=== PATIENT | female | born 1950 | race Caucasian/White ===

== ENCOUNTER 2020-09-22 09:51 | Outpatient (REF) | payer MEDICARE, OTHER, SELFPAY ==
--- NOTE | 2020-09-22 09:55 | MM_ITS ---
EXAMINATION: MM SCREENING DIGITAL BREAST TOMOSYNTHESIS, BILATERAL CLINICAL INFORMATION: Screening. Asymptomatic. The lifetime risk of breast cancer based on the Tyrer-Cuzick Model is 11%. COMPARISON: Outside mammography: 01/26/2019, 01/22/2018, 01/20/2017 ([place]). TECHNIQUE: Digital breast tomosynthesis is performed in both the craniocaudal and mediolateral oblique views along with computer-aided detection (CAD). Synthesized 2D images are generated from the tomosynthesis. FINDINGS: There are scattered areas of fibroglandular density (ACR BI-RADS breast composition Category b). There are no significant masses, abnormal calcifications, or other abnormalities. Parenchymal pattern is similar to prior outside exam. There is a small dermal lesion again seen posterior medial left breast on CC view, previously marked with mole marker. Low left axillary tail node is also stable. There are no significant changes. MM/MM tomosynthesis screening BI IMPRESSION: No mammographic evidence of malignancy. ASSESSMENT: BI-RADS 2: Benign RECOMMENDATION: Routine annual mammography screening. This patient's information was entered into a reminder system with a target due date for their next mammogram.
== END 2020-09-22 09:52 | disposition home or self-care (01) ==
LOC: HO.MAMMO 09:51
PROVIDERS: PCP Internal Medicine Geriatric Medicine; Visit Provider Internal Medicine Geriatric Medicine
DX: Z12.31 Encounter for screening mammogram for malignant neoplasm of breast (principal)
CPT/HCPCS: 77063; 77067

== ENCOUNTER 2021-11-05 15:34 | Outpatient (REF) | payer MEDICARE, OTHER, SELFPAY ==
--- NOTE | ~2021-11-05 | MM_ITS ---
EXAMINATION: MM SCREENING DIGITAL BREAST TOMOSYNTHESIS, BILATERAL CLINICAL INFORMATION: Screening. Asymptomatic. Benign right excisional biopsy, 1971. The lifetime risk of breast cancer based on the Tyrer-Cuzick Model is 11%. COMPARISON: Mammography: 09/22/2020; outside mammography 01/26/2019, 01/22/2018 ([place]). TECHNIQUE: Digital breast tomosynthesis is performed in both the craniocaudal and mediolateral oblique views along with computer-aided detection (CAD). Synthesized 2D images are generated from the tomosynthesis. FINDINGS: There are scattered areas of fibroglandular density (ACR BI-RADS breast composition Category b). There are no significant masses, abnormal calcifications, or other abnormalities. Parenchymal pattern is similar to prior exams. No developing density or architectural abnormality. The axilla are unremarkable. No significant changes. MM/MM tomosynthesis screening BI IMPRESSION: No mammographic evidence of malignancy. ASSESSMENT: BI-RADS 1: Negative RECOMMENDATION: Routine annual mammography screening. This patient's information was entered into a reminder system with a target due date for their next mammogram.
== END 2021-11-05 15:35 | disposition home or self-care (01) ==
LOC: HO.MAMMO 15:34
PROVIDERS: PCP Internal Medicine Geriatric Medicine; Visit Provider Internal Medicine Geriatric Medicine
DX: Z12.31 Encounter for screening mammogram for malignant neoplasm of breast (principal)
CPT/HCPCS: 77063; 77067

== ENCOUNTER 2022-03-08 10:47 | Outpatient (REF) | payer MEDICARE, OTHER, SELFPAY ==
--- NOTE | ~2022-03-08 | MM_ITS ---
EXAMINATION: BONE DENSITOMETRY CLINICAL INDICATION: Encounter for screening for osteoporosis. COMPARISON: Baseline BD dated 07/23/2019. TECHNIQUE: Using a [employer] DXA System (software version: 13.1) manufactured by [employer], dual-energy x-ray absorptiometry was performed of the lumbar spine and left hip. The images are of good technical quality. Summary results are attached. FINDINGS: AP SPINE L1-L4: Current: BMD 1.080 g/cm2, Z-score 0.4, T-score -0.8, normal, 6.8% increase from baseline (<5% change is not significant). Baseline: BMD 1.011 g/cm2. LEFT FEMUR, NECK: Current: BMD 0.721 g/cm2, Z-score -0.8, T-score -2.3, osteopenia. Baseline: BMD 0.680 g/cm2. LEFT FEMUR, TOTAL: Current: BMD 0.820 g/cm2, Z-score -0.3, T-score -1.5, osteopenia, 6.6% increase from baseline (<5% change is not significant). Baseline: BMD 0.769 g/cm2. IDENTIFIED RISK FACTORS: Osteoporosis, history of fracture (adult), menopause. HISTORY OF FRACTURE: Wrist. Other. MEDICATIONS: Calcium supplements or multivitamin, vitamin D, bisphosphonates. MM/XR DEXA axial skeleton IMPRESSION: 1. DIAGNOSIS: Osteopenia based on the lowest T-score value of -2.3 in the femoral neck applying World Health Organization criteria. 2. 10-YEAR FRACTURE RISK PREDICTION, FRAX: Major osteoporotic fracture (clinical spine, forearm, hip or shoulder) 20.5%. Hip fracture 4.6%. 3. Treatment Recommendations: NOF guidelines recommend consideration for treatment in postmenopausal women and men age 50 and older presenting with the following: -A hip or vertebral (clinical or morphometric) fracture. -T-score less than or equal to -2.5 at the femoral neck or spine after appropriate evaluation to exclude secondary causes. -Low bone mass at the hip or spine and a 10-year fracture probability by FRAX of greater than or equal to 3% for hip fracture or greater than or equal to 20% for major osteoporotic fracture based on the [place] adapted WHO algorithm. 4. Other Recommendations: All treatment decisions require clinical judgment and consideration of individual patient factors, including patient preferences, comorbidities, previous drug use, risk factors not captured in the FRAX model (e.g. frailty, falls, vitamin D deficiency, increased bone turnover, interval significant decline in bone density) and possible under or overestimation of fracture risk by FRAX. Additional medical evaluation for secondary cause of low bone mineral density may be appropriate. FUTURE SCAN RECOMMENDATION: People with diagnosed cases of osteoporosis or at high risk for fracture should have regular bone mineral density tests. For patients eligible for Medicare, routine testing is allowed once every 2 years. The testing frequency can be increased to one year for patients who have rapidly progressing disease, those who are receiving or discontinuing medical therapy to restore bone mass, or have additional risk factors.
== END 2022-03-08 10:48 | disposition home or self-care (01) ==
LOC: HO.MAMMO 10:47
PROVIDERS: Visit Provider Advanced Practice Midwife
DX: Z13.820 Encounter for screening for osteoporosis (principal); M81.0 Age-related osteoporosis without current pathological fracture; Z78.0 Asymptomatic menopausal state
CPT/HCPCS: 77080

== ENCOUNTER 2022-11-11 10:37 | Outpatient (REF) | payer MEDICARE, OTHER, SELFPAY ==
--- NOTE | ~2022-11-11 | MM_ITS ---
EXAMINATION: MM SCREENING DIGITAL BREAST TOMOSYNTHESIS, BILATERAL CLINICAL INFORMATION: Screening. Asymptomatic. The lifetime risk of breast cancer based on the Tyrer-Cuzick Model is 8%. COMPARISON: Mammography: 11/05/2021, 09/22/2020, 01/26/2019 TECHNIQUE: Digital breast tomosynthesis is performed in both the craniocaudal and mediolateral oblique views along with computer-aided detection (CAD). Synthesized 2D images are generated from the tomosynthesis. FINDINGS: There are scattered areas of fibroglandular density (ACR BI-RADS breast composition Category b). There are no significant masses, abnormal calcifications, or other abnormalities. Parenchymal pattern is similar to prior studies. There is no developing density or architectural abnormality. The axilla and skin contours are unremarkable. No significant changes. MM/MM tomosynthesis screening BI IMPRESSION: No mammographic evidence of malignancy. ASSESSMENT: BI-RADS 1: Negative RECOMMENDATION: Routine annual mammography screening. This patient's information was entered into a reminder system with a target due date for their next mammogram.
== END 2022-11-11 10:38 | disposition home or self-care (01) ==
LOC: HO.MAMMO 10:37
PROVIDERS: PCP Internal Medicine Geriatric Medicine; Visit Provider Internal Medicine Geriatric Medicine
DX: Z12.31 Encounter for screening mammogram for malignant neoplasm of breast (principal)
CPT/HCPCS: 77063; 77067

== ENCOUNTER 2023-07-26 08:26 | Outpatient (REF) | payer MEDICARE, OTHER, SELFPAY ==
[2023-07-26 09:33] LABS: Alanine Aminotransferase 30 U/L (0-31); Albumin Level 4.3 g/dL (3.5-5.0); Alkaline Phosphatase 70 U/L (39-117); Anion Gap 17 (12-20); Aspartate Amino Transferase 23 U/L (5-31); Bilirubin Total 0.8 mg/dL (0.0-1.0); Blood Urea Nitrogen 12 mg/dL (9-16); Calcium 10.6 mg/dL (8.4-10.2); Carbon Dioxide 24 mmol/L (22-29); Chloride 103 mmol/L (96-108); Estimated Glomerular Filt Rate > 60; Glucose Random 99 mg/dL (60-115); Sodium 140 mmol/L (135-145); Total Protein 7.2 g/dL (6.5-8.0)
== END 2023-07-26 08:27 | disposition home or self-care (01) ==
LOC: HO.LAB 08:26
PROVIDERS: PCP Internal Medicine Geriatric Medicine; Visit Provider Internal Medicine Geriatric Medicine
DX: E03.9 Hypothyroidism, unspecified (principal); E78.5 Hyperlipidemia, unspecified
CPT/HCPCS: 36415; 80053; 84443

== ENCOUNTER 2023-07-31 12:23 | Outpatient (REF) | payer MEDICARE, OTHER, SELFPAY | END 2023-07-31 12:24 | disposition home or self-care (01) | LOC: HO.HHCL 12:23 | PROVIDERS: Visit Provider Internal Medicine Geriatric Medicine | DX: E03.9 Hypothyroidism, unspecified (principal); E83.52 Hypercalcemia | CPT/HCPCS: 36415; 83970 ==

== ENCOUNTER 2023-11-17 10:14 | Outpatient (REF) | payer MEDICARE, OTHER, SELFPAY | END 2023-11-17 10:15 | disposition home or self-care (01) | LOC: HO.MAMMO 10:14 | PROVIDERS: PCP Internal Medicine Geriatric Medicine; Visit Provider Internal Medicine Geriatric Medicine | DX: Z12.31 Encounter for screening mammogram for malignant neoplasm of breast (principal) | CPT/HCPCS: 77063; 77067 ==

== ENCOUNTER → 2023-11-17 10:30 | Outpatient (BNV) | payer MEDICARE, OTHER, SELFPAY | PROVIDERS: PCP Internal Medicine Geriatric Medicine; Visit Provider Radiology Diagnostic Radiology | DX: Z12.31 Encounter for screening mammogram for malignant neoplasm of breast (principal) | CPT/HCPCS: 77063; 77067 ==

== ENCOUNTER 2024-04-01 10:46 | Outpatient (REF) | payer MEDICARE, OTHER, SELFPAY ==
--- NOTE | ~2024-04-01 | MM_ITS ---
EXAMINATION: BONE DENSITOMETRY CLINICAL INDICATION: Osteoporosis. Primary hyperparathyroidism. COMPARISON: Previous BD dated 03/08/2022 and baseline BD dated 07/23/2019. TECHNIQUE: Using a [employer] DXA System (software version: 13.1) manufactured by [employer], dual-energy x-ray absorptiometry was performed of the lumbar spine, left hip, and right forearm radius 33%. The images are of good technical quality. Summary results are attached. FINDINGS: LEFT FEMUR, NECK: Current: BMD 0.724 g/cm2, Z-score -0.7, T-score -2.3, osteopenia. Prior: BMD 0.721 g/cm2. Baseline: BMD 0.680 g/cm2. LEFT FEMUR, TOTAL: Current: BMD 0.799 g/cm2, Z-score -0.4, T-score -1.7, osteopenia, 2.6% decrease from previous, 3.9% increase from baseline (<5% change is not significant). Prior: BMD 0.820 g/cm2. Baseline: BMD 0.769 g/cm2. AP SPINE L1-L4: Current: BMD 1.109 g/cm2, Z-score 0.7, T-score -0.6, normal, 2.7% increase from previous, 9.7% increase from baseline (<5% change is not significant). Prior: BMD 1.080 g/cm2. Baseline: BMD 1.011 g/cm2. RIGHT FOREARM RADIUS 33%: BMD 0.730 g/cm2, Z-score 0.4, T-score -1.7, osteopenia. IDENTIFIED RISK FACTORS: Menopause, history of fracture (adult), hyperparathyroid, osteoporosis. HISTORY OF FRACTURE: Wrist, other. MEDICATIONS: Calcium, vitamin D, bisphosphonate. MM/XR DEXA appendicular skeleton IMPRESSION: 1. DIAGNOSIS: Osteopenia based on the lowest T-score value of -2.3 in the femoral neck applying World Health Organization criteria. 2. 10-YEAR FRACTURE RISK PREDICTION, FRAX: Not performed in this patient on estrogen or bone building treatments. 3. Treatment Recommendations: NOF guidelines recommend consideration for treatment in postmenopausal women and men age 50 and older presenting with the following: -A hip or vertebral (clinical or morphometric) fracture. -T-score less than or equal to -2.5 at the femoral neck or spine after appropriate evaluation to exclude secondary causes. -Low bone mass at the hip or spine and a 10-year fracture probability by FRAX of greater than or equal to 3% for hip fracture or greater than or equal to 20% for major osteoporotic fracture based on the [place] adapted WHO algorithm. 4. Other Recommendations: All treatment decisions require clinical judgment and consideration of individual patient factors, including patient preferences, comorbidities, previous drug use, risk factors not captured in the FRAX model (e.g. frailty, falls, vitamin D deficiency, increased bone turnover, interval significant decline in bone density) and possible under or overestimation of fracture risk by FRAX. Additional medical evaluation for secondary cause of low bone mineral density may be appropriate. FUTURE SCAN RECOMMENDATION: People with diagnosed cases of osteoporosis or at high risk for fracture should have regular bone mineral density tests. For patients eligible for Medicare, routine testing is allowed once every 2 years. The testing frequency can be increased to one year for patients who have rapidly progressing disease, those who are receiving or discontinuing medical therapy to restore bone mass, or have additional risk factors.
== END 2024-04-01 10:47 | disposition home or self-care (01) ==
LOC: HO.MAMMO 10:46
PROVIDERS: PCP Internal Medicine Geriatric Medicine; Visit Provider Internal Medicine Endocrinology, Diabetes & Metabolism
DX: M81.0 Age-related osteoporosis without current pathological fracture (principal); E21.0 Primary hyperparathyroidism
CPT/HCPCS: 77081

== ENCOUNTER 2024-11-18 10:12 | Outpatient (REF) | payer MEDICARE, OTHER, SELFPAY ==
--- OUTSIDE RECORDS SUMMARY | 2024-11-18 11:52 | XMS_ITS | Clinical Summary ---
Author Organization [facility] Address [phone] [facility] [place] [address] Care Team Providers Care Medical Dermatologist Name Role Phone Name, Lobo BROWN Primary Care Provider [phone] Allergies Active Allergy Reactions Criticality Noted Date Comments Bee Venom Protein (Honey Bee) 05/22/2007 Other Reaction(s): Numbness, tingling or swelling of the lips, tongue or mouth Venom-Honey Bee 05/22/2007 Other reaction(s): Numbness, tingling or swelling of the lips, tongue or mouth Medications Medication Sig Dispensed Refills Start Date End Date Status levothyroxine (SYNTHROID, LEVOTHROID) 88 MCG tablet Take 88 mcg by mouth every morning. Active atorvastatin (LIPITOR) 20 MG tablet Take 20 mg by mouth every morning. Active sertraline (ZOLOFT) 50 MG tablet Take 50 mg by mouth daily. Active omega-3 fatty acids-fish oil 340-1,000 mg Cap Take 2 capsules by mouth daily. 200 mg fish oil per 2 capsules. Active Medication-Free Text Glucosamone- Chondroitin- 200 mg-1200 mg- 5 capsules daily. Active Medication-Free Text Calcium 1200 mg with Vitamin D3 25 mcg- 2 daily. Active Medication-Free Text Hair, Skin, Nails with Biotin 5,000 mcg- 2 tablets daily Active LORazepam (ATIVAN) 0.5 MG tablet Take 0.5 mg by mouth daily as needed. 01/22/2023 Active EPINEPHrine 0.3 mg/0.3 mL auto-injector Inject 0.3 mg into the muscle once as needed. 01/22/2023 Active alendronate (FOSAMAX) 70 MG tablet Take 70 mg by mouth every 7 days. Active Active Problems Problem Noted Date Diagnosed Date Primary hyperparathyroidism 03/08/2024 Assessment & Plan (09/13/2024 8:43 AM EST): The patient has normocalcemic primary hyperparathyroidism she has consulted endocrine surgery and will be scheduled for parathyroidectomy in October or November 2024. Assessment & Plan (06/09/2024 10:19 AM EDT): Normocalcemic hyperparathyroidism. 1 indication for surgery which is osteoporosis. Sestamibi scan consistent with inferior parathyroid adenoma. Will request ultrasound for further evaluation/clarification. The patient is willing to undergo parathyroidectomy so I will refer her to endocrine surgeon Dr. Katherin Saldivar at [facility]. Assessment & Plan (03/08/2024 9:03 AM EDT): Based on elevated intact PTH and serum calcium to correct to normal she has normocalcemic primary hyperparathyroidism. 24-hour urine calcium output, 1, 25 dihydroxy vitamin D, serum phosphorus, GFR were all in the reference range. She only has 1 indication for parathyroidectomy this is osteoporosis. I will request a parathyroid scan to be done at [facility]. Age-related osteoporosis wit hout current pathological fracture 03/08/2024 Assessment & Plan (09/13/2024 8:43 AM EST): The patient is on calcium, vitamin D, alendronate since 2019 she should continue current regimen and to weightbearing exercises if tolerated. After parathyroidectomy they should be significant improvement of bone mineral density. Assessment & Plan (06/09/2024 10:22 AM EDT): The patient continues with calcium, vitamin D she does walking for weightbearing exercises, she is on alendronate. She did have an improvement in the bone mineral density of the lumbar spine despite having normocalcemic primary hyperparathyroidism unfortunately the left hip decreased by 3.9% which is significant. She does have osteopenia of the forearm as well. She should continue current regimen I do recommend parathyroidectomy which will help with increasing bone density. Assessment & Plan (03/08/2024 9:03 AM EDT): I have not obtained a history on osteoporosis to find the risk factors for osteoporosis. She is taking calcium, vitamin D and is on alendronate therapy. She is due for repeat DXA scan today on 03/08/2024. This has not yet been requested. I will request the study be done at [facility] but the forearm should be measured in addition to the spine and hip since she has been found to have normocalcemic primary hyperparathyroidism. Hypercalcemia 12/05/2023 Assessment & Plan (03/08/2024 9:01 AM EDT): I evaluated for multiple etiologies for hypercalcemia everything was in the reference range except for repeat PTH which this time was elevated. Serum calcium is elevated but corrects to normal when corrected with albumin. So she appears to have normocalcemic primary hyperparathyroidism. Assessment & Plan (12/05/2023 11:41 AM EST): The differential diagnosis for hypercalcemia includes primary hyperparathyroidism, humoral hypercalcemia vitamin D intoxication, sarcoidosis, lymphoma, hyperthyroidism, milk-alkali syndrome due to excess calcium intake, familial hypocalciuric hypercalcemia, immobilization, adrenal insufficiency, hyperthyroidism, pheochromocytoma and acromegaly. PTH was in the reference range but it was on the higher normal side. So for humoral hypercalcemia I would expect the intact PTH to be on the low side as PTH related peptide will be elevated. So it does not sound like this is malignant. But of course we can check serum protein electrophoresis for multiple myeloma. So there is really no suspicions based on normal total protein and albumin levels. Furthermore she does not have renal insufficiency. 1, 25 dihydroxy vitamin D can be elevated with malignancy such as lymphoma so we will check that. This could also be elevated for sarcoidosis. The patient is active so immobilization is unlikely. Familial hypocalciuric can result in hypercalcemia and the PTH is usually normal so I will check 24-hour urine calcium output. Hyperthyroidism can result in this and at 1 point she was getting too much thyroxine supplementation. Pheochromocytoma, adrenal insufficiency and acromegaly rare causes. Again it does not seem likely but I will check baseline levels. Will repeat vitamin D levels for evaluation of vitamin D toxicity but she is not taking nearly enough vitamin D to cause this. Will check vitamin A level. I will not check lithium level because she does not take this medication. Encounters Date Type Department Care Team Description 09/13/2024 8:30 AM EST Office Visit [facility] [address] [place] [address] Didier Parks, Primary hyperparathyroidism (Primary Dx); Age-related osteoporosis without current pathological fracture from Last 3 Months Family History Medical History Relation Comments Diabetes mellitus Father Pulmonary fibrosis Father Breast cancer Mother Diabetes mellitus Mother Kidney disease Mother Relation Status Comments Father Mother Social History Tobacco Use Types Packs/Day Years Used Date Smoking Tobacco: Never Smokeless Tobacco: Never Tobacco Cessation:Counseling Given: Not Answered Comments:Never smoked Alcohol Use Standard Drinks/Week Comments Yes 0 (1 standard drink = 0.6 oz pur e alcohol) 5 glasses of wine per week. Education Answer Date Recorded Are you interested in more education? Not on amish e 09/26/2023 Are you concerned about learning? Not on file 09/26/2023 No 09/26/2023 No 09/26/2023 Digital Access Answer Date Recorded No 09/26/2023 No 09/26/2023 Reliable internet access at home? Not on file 09/26/2023 Device with a working camera? Not on file Sex and Gender Information Value Date Recorded Sex Assigned at Not on file Gender Identity Not on file Sexual Orientation Not on file Last Filed Vital Signs Vital Sign Reading Time Taken Comments Blood Pressure 112/72 09/13/2024 8:31 AM EST Pulse 68 09/13/2024 8:31 AM EST Temperature 36.4 ??C (97.5 ??F) 12/05/2023 10:[address] Respiratory Rate - - Oxygen Saturation 98% 09/13/2024 8:31 AM EST Inhaled Oxygen Concentration - - Weight 78 kg (172 lb) 09/13/2024 8:31 AM EST Height 159 cm (5' 2.6 ) 09/13/2024 8:31 AM EST Body Mass Index 30.86 09/13/2024 8:31 AM EST Plan of Treatment Upcoming Encounters Date Type Department Care Team (Late st Contact Info) Description 03/03/2025 9:30 AM EDT Office Visit [facility] [address] [place] [address] Didier Parks DO [address] [place] [address] [email or web address] Health Maintenance Due Date Last Done Comments LIPID PANEL 1951 DEPRESSION SCREENING 1963 HEPATITIS B SCREENING 1969 HEPATITIS C SCREENING 1969 COLOGUARD 1996 COLONOSCOPY 1996 COLORECTAL CANCER SCREENING 1996 FIT TEST 1996 FOBT 1996 SIGMOIDOSCOPY 1996 VIRTUAL COLONOSCOPY 1996 ZOSTER VACCINES (1 of 2) 2001 PNEUMOCOCCAL VACCINES (50+ years) (2 of 2 - PCV) 12/06/2017 12/06/2016 INFLUENZA VACCINE (#1) 2024 COVID-19 VACCINE ( - season) 2024 MAMMOGRAM 11/11/2024 11/11/2022 TSH LEVEL 12/12/2024 12/12/2023 RSV VACCINE (1 - 1-dose 75+ series) 2026 Adult Td,Tdap Booster 07/31/2033 07/31/2023, 013 OSTEOPOROSIS SCREENING INITIAL (ONE-TIME) Completed 04/01/2024, 03/08/2024, 03/08/2022, Additional history exists SMOKING STATUS SCREENING (Once After 26 Yrs) Completed 09/13/2024 HEPATITIS A VACCINES Aged Out No long er eligible based on patient's age to complete this topic HEPATITIS B VACCINES Aged Out No long er eligible based on patient's age to complete this topic HIB VACCINES Aged Out No longer eligi ble based on patient's age to complete this topic MENINGOCOCCAL VACCINES (ACWY) Aged Out No longer eligible based on patient's age to complete this topic Medical Devices Not on file Procedures Procedure Name Priority Date/Time Associated Diagnosis Comments BD DXA MONITORING Routine 04/01/2024 11: 30 AM EDT Primary hyperparathyroidism Age-related osteoporosis without current pathological fracture TSH WITH REFLEX Routine 12/12/2023 8:39 AM EST Hypercalcemia from Last 3 Months or Most Recently Relevant to Health Maintenance Results * DXA Monitoring (04/01/2024 11:30 AM EDT) Anatomical Region Laterality Modality Bone Density Bone Density Didier Parks DO IMG BD BONE DENSITY DEXA * (ABNORMAL) TSH with reflex (12/12/2023 8:39 AM EST) TSH 4.57(H) 0.27 - 4.20 uIU/mL [facility] Blood 12/12/2023 8:39 AM EST 12/12/2023 8:44 AM EST Didier Parks DO LAB BLOOD ORDERABLES [facility] [address] [place] [address] from Last 3 Months or Most Recently Relevant to Health Maintenance Care Teams Medical Dermatologist Relationship Specialty Start Date End Date Name, MD Lobo [address] [place] [id number] PCP - General Internal Medicine 08/18/23 Additional Source Comments The information contained in this document represents components of the legal health record. It is not the complete legal health record.[facility]
--- OUTSIDE RECORDS SUMMARY | 2024-11-18 11:52 | XMS_ITS | Encounter Summary ---
Author Organization [employer] Address [address] [place] [address] [address] [place] [address] Care Team Providers Care Music Adapter Name Role Phone Name, Lobo BROWN Primary Care Provider [phone] Reason for Visit * Reason Onset Date Comments request 01/30/2024 Encounter Details Date Type Department Care Team ([facility] st Contact Info) Description 01/30/2024 Telephone [facility] [address] [place], [place] [id number] Name, MD Lobo [address] [place] [address] request Social History Tobacco Use Types Packs/Day Years Used Date Smoking Tobacco: Never Smokeless Tobacco: Never Alcohol Use Standard Drinks/Week Comments Yes 7 (1 standard drink = 0.6 oz pur e alcohol) Depression Answer Date Recorded Patient Health Questionnaire-9 Score 0 01/22/2023 Housing Stability Answer Date Recorded What is your housing situation today? I have mariela celis 08/22/[address] you li ve. Do you have problems with any of the following? None of the above 08/22/2023 Food Insecurity Answer Date Recorded Within the past 12 months, y ou worried that your food would run out before you got money to buy more: Never True 08/22/2023 Within the past 12 months,th e food you bought just didn't last and you didn't have enough money to get more: Never True Transportation Answer Date Recorded In the past 12 months, has l ack of transportation kept you from medical appts, meetings, work or from getting things needed for daily living? No 08/22/2023 Utilities Answer Date Recorded In the past 12 months, has t he electric, gas, oil or water company threatened to shut off services in your home? No 08/22/2023 Depression Answer Date Recorded Patient Health Questionnaire-2 Score 0 01/22/2023 Comments Unknown Sex and Gender Information Value Date Recorded Sex Assigned at Female 08/26/2022 10:29 AM EDT Legal Sex Female 10:29 AM EDT Gender Identity Female 08/26/2022 10:29 AM EDT Sexual Orientation Straight 08/26/2022 10 :29 AM EDT documented as of this encounter Miscellaneous Notes * Telephone Encounter - Negrita Bruce - 01/30/2024 3:21 PM EDT Tc from pt requesting to switch appt with Kayden Burgess Stated he needs to be seen sooner. Her appt is on 02/22 His 04/15 documented in this encounter Plan of Treatment Not on file documented as of this encounter Visit Diagnoses Not on filedocumented in this encounter Additional Health Concerns Assessment Noted Time PHQ-9 Depression Total Score: 0 01/23/20 23 2:25 PM EDT documented as of this encounter Care Teams Music Adapter Relationship Specialty Start Date End Date Name, MD Lobo [address] [place] [address] PCP - General Family Medicine 02/26/16 documented as of this encounter
--- OUTSIDE RECORDS SUMMARY | 2024-11-18 11:52 | XMS_ITS | Encounter Summary ---
Author Organization [employer] Address [address] [place] [address] 7 [place] [address] Care Team Providers Care Bankruptcy Assistant Name Role Phone Name, Lobo BROWN Primary Care Provider [phone] Reason for Visit * Reason Comments Follow-up Encounter Details Date Type Department Care Team (Latest Contact Info) Description 10/28/2024 10:30 AM EST Office Visit [facility] [address] [place] [address] [phone] Name, MD Lobo [address] [place] [address] [phone] Primary hyperparathyroidism (CMS/HCC) (Primary Dx); Acquired hypothyroidism Social History Tobacco Use Types Packs/Day Years Used Date Smoking Tobacco: Never Smokeless Tobacco: Never Alcohol Use Standard Drinks/Week Comments Yes 7 (1 standard drink = 0.6 oz pur e alcohol) Alcohol Answer Date Recorded Frequency of Alcohol Consumption Not on file 04/15/2024 Average Number of Drinks Not on file 024 Frequency of Binge Drinking Not on file 03/28 Score 0 04/15/2024 Depression Answer Date Recorded Patient Health Questionnaire-9 Score 0 04/15/2024 Patient Health Questionnaire-9 Score 0 04/15/2024 Last PHQ-9: Questionnaire Data Not on file 0 04/15/2024 Housing Stability Answer Date Recorded What is your housing situation today? I have mariela celis 04/15/[address] you li ve. Do you have problems with any of the following? None of the above 04/15/2024 Food Insecurity Answer Date Recorded Within the past 12 months, y ou worried that your food would run out before you got money to buy more: Never True 04/15/2024 Within the past 12 months,th e food you bought just didn't last and you didn't have enough money to get more: Never True Transportation Answer Date Recorded In the past 12 months, has l ack of transportation kept you from medical appts, meetings, work or from getting things needed for daily living? No 04/15/2024 Utilities Answer Date Recorded In the past 12 months, has t he electric, gas, oil or water company threatened to shut off services in your home? No 04/15/2024 Depression Answer Date Recorded Patient Health Questionnaire-2 Score 0 04/15/2024 Internet Access Answer Date Recorded Internet Access Q1 No 06/25/2024 Internet Access Q2 I do not want or need it 05/29 Comments Unknown Sex and Gender Information Value Date Recorded Sex Assigned at Female 08/26/2022 10:29 AM EDT Legal Sex Female 10:29 AM EDT Gender Identity Female 08/26/2022 10:29 AM EDT Sexual Orientation Straight 08/26/2022 10 :29 AM EDT documented as of this encounter Last Filed Vital Signs Vital Sign Reading Time Taken Comments Blood Pressure 126/74 10/28/2024 10:25 AM EST Pulse 66 10/28/2024 10:25 AM EST Temperature 35.7 ??C (96.2 ??F) 10/28/2024 10:[address] Respiratory Rate 16 10/28/2024 10:25 AM EST Oxygen Saturation - - Inhaled Oxygen Concentration - - Weight 78.5 kg (173 lb) 10/28/2024 10:25 AM EST Height 157.5 cm (5' 2 ) 10/28/2024 10:25 AM EST Body Mass Index 31.64 10/28/2024 10:25 AM EST documented in this encounter Progress Notes * Lobo Mo MD - 10/28/2024 10:30 AM EST Subjective Patient ID: Camila Burgess is a 74 y.o. female who presents for Follow-up. Patient comes for a follow-up visit. She is doing well. The patient is scheduled to have surgery for treatment of hyperparathyroidism at the end of October. She is using her medications as prescribed. She is up-to-date with her blood work including TSH that she had done at [facility]. She is exercising regularly. She requested that I refill her levothyroxine. She is up-to-date with all her vaccinations including seasonal flu and COVID. Review of Systems Constitutional: Negative for chills and fever. HENT: Negative for sore throat. Respiratory: Negative for cough, shortness of breath and wheezing. Cardiovascular: Negative for chest pain, palpitations and leg swelling. Gastrointestinal: Negative for abdominal pain. Visit Vitals BP 126/74 (BP Location: Right arm, Patient Position: Sitting, BP Cuff Size: Adult) Pulse 66 Temp 96.2 ??F (35.7 ??C) (Temporal) Resp 16 Ht 5' 2 (1.575 m) Wt 173 lb (78.5 kg) BMI 31.64 kg/m?? Smoking Status Never BSA 1.85 m?? Objective Physical Exam Constitutional: Appearance: Normal appearance. Cardiovascular: Rate and Rhythm: Normal rate and regular rhythm. Heart sounds: No murmur heard. No gallop. Pulmonary: Effort: Pulmonary effort is normal. No respiratory distress. Breath sounds: Normal breath sounds. No wheezing. Musculoskeletal: Right lower leg: No edema. Left lower leg: No edema. Neurological: Mental Status: She is alert. Current Outpatient Medications on File Prior to Visit Medication Sig Dispense Refill alendronate (Fosamax) 70 MG tablet Take 1 tablet by mouth every week in the morning, at least 30 min before first food, beverage, or medication of day 12 tablet 3 atorvastatin (Lipitor) 20 MG tablet TAKE 1 TABLET BY MOUTH EVERY DAY IN THE MORNING 90 tablet 3 EPINEPHrine (Epipen) 0.3 MG/0.3ML injection syringe Inject 0.3 mL (0.3 mg) as directed 1 (one) timeif needed for anaphylaxis for up to 1 dose. Inject into upper leg. Call 911 after use. 1 each 1 LORazepam (Ativan) 0.5 MG tablet Take 1 tablet (0.5 mg) by mouth if needed each day for anxiety. 30tablet 0 sertraline (Zoloft) 50 MG tablet TAKE 1 TABLET BY MOUTH EVERY DAY IN THE MORNING 90 tablet 3 [DISCONTINUED] levothyroxine (Synthroid, Levoxyl) 88 MCG tablet TAKE 1 TABLET BY MOUTH BEFORE BREAKFAST 90 tablet 3 No current facility-administered medications on file prior to visit. Assessment/Plan Diagnoses and all orders for this visit: Primary hyperparathyroidism (CMS/HCC) Comments: Continue Fosamax, calcium supplementation and vitamin D, regular physical activity. She is scheduled for hyper parathyroidectomy at the end of the month. Acquired hypothyroidism Comments: Continue current dose of levothyroxine. Other orders - levothyroxine (Synthroid, Levoxyl) 88 MCG tablet; TAKE 1 TABLET BY MOUTH BEFORE BREAKFAST documented in this encounter Plan of Treatment Not on file documented as of this encounter Visit Diagnoses Diagnosis Primary hyperparathyroidism (CMS/HCC)- Primary Primary hyperparathyroidism Acquired hypothyroidism Unspecified hypothyroidism documented in this encounter Additional Health Concerns Assessment Noted Time PHQ-9 Depression Total Score: 0 04/15/20 24 9:00 AM EDT documented as of this encounter Care Teams Bankruptcy Assistant Relationship Specialty Start Date End Date Name, MD Lobo [address] [place] [address] PCP - General Family Medicine 02/26/16 documented as of this encounter
--- OUTSIDE RECORDS SUMMARY | 2024-11-18 11:52 | XMS_ITS | Encounter Summary ---
Author Organization [employer] Address [address] [facility] [address] [address] [place] [address] Care Team Providers Care Claims Account Specialist Name Role Phone Name, Lobo BROWN Primary Care Provider [phone] Encounter Details Date Type Department Care Team (Late st Contact Info) Description 12/02/2023 Abstract [facility] [address] [place], [place] [phone] Name, MD Lobo [address] [place] [address] Social History Tobacco Use Types Packs/Day Years Used Date Smoking Tobacco: Never Smokeless Tobacco: Never Alcohol Use Standard Drinks/Week Comments Yes 7 (1 standard drink = 0.6 oz pur e alcohol) Depression Answer Date Recorded Patient Health Questionnaire-9 Score 0 01/22/2023 Housing Stability Answer Date Recorded What is your housing situation today? I have marielajuancarlos celis 08/22/[address] you [...] AM EDT documented as of this encounter Plan of Treatment Not on file documented as of this encounter Procedures Procedure Name Priority Date/Time Associated Diagnosis Comments MAMMOGRAPHY Routine 11/17/2023 documented in this encounter Results * Mammography (11/17/2023) Mammogram Negative Comment:Bi-rads 1 Negative Anatomical Region Laterality Modality Other Lobo Mo MD HEALTH MAINTENANCE Final Result documented in this encounter Visit Diagnoses Not on filedocumented in this encounter Additional Health Concerns Assessment Noted Time PHQ-9 Depression Total Score: 0 01/23/20 23 2:25 PM EDT documented as of this encounter Care Teams Claims Account Specialist Relationship Specialty Start Date End Date Name, MD Lobo [address] [place] [address] PCP - General Family Medicine 02/26/16 documented as of this encounter
--- OUTSIDE RECORDS SUMMARY | 2024-11-18 11:52 | XMS_ITS | Encounter Summary ---
Author Organization [employer] Address [address] [place] [address] 7[address] [place] [address] Care Team Providers Care Deputy Chief Executive Name Role Phone Name, Lobo BROWN Primary Care Provider [phone] Encounter Details Date Type Department Care Team (Latest Contact Info) Description 10/21/2024 Travel Social History Tobacco Use Types Packs/Day Years [...] documented as of this encounter Care Teams Deputy Chief Executive Relationship Specialty Start Date End Date Name, MD Lobo [address] [place] [id number] PCP - General Family Medicine 02/26/16 documented as of this encounter
--- OUTSIDE RECORDS SUMMARY | 2024-11-18 11:52 | XMS_ITS | Encounter Summary ---
Author Organization [employer] Address [address] [facility] 7t [place] [address] Care Team Providers Care Insurance Coordinator Name Role Phone Name, Lobo BROWN Primary Care Provider [phone] Reason for Visit * Reason Onset Date Comments Chart Prep 10/25/2024 Encounter Details Date Type Department Care Team ([facility] st Contact Info) Description 10/25/2024 Telephone [facility] [address] [place], [place] [phone] [place] Chart Prep Social History Tobacco Use Types Packs/Day Years [...] encounter Miscellaneous Notes * Telephone Encounter - [place]le [place] - 10/25/2024 1:52 PM EST Chart Prep Labs: not applicable Images: done Vaccines due: Not Applicable Referrals: Not Applicable Screenings: Mammogram and Hep C Overdue care gaps: None documented in this encounter Plan of Treatment Not on file documented as of this encounter Visit Diagnoses Not on filedocumented in this encounter Additional Health Concerns Assessment Noted Time PHQ-9 Depression Total Score: 0 04/15/20 24 9:00 AM EDT documented as of this encounter Care Teams Insurance Coordinator Relationship Specialty Start Date End Date Name, MD Lobo [address] [place] [address] PCP - General Family Medicine 02/26/16 documented as of this encounter
--- OUTSIDE RECORDS SUMMARY | 2024-11-18 11:52 | XMS_ITS | Encounter Summary ---
Author Organization [employer] Address [address] [place] [address] 7 [place] [address] Care Team Providers Care Nuclear Officer Name Role Phone Name, Lobo BROWN Primary Care Provider [phone] Encounter Details Date Type Department Care Team (Late st Contact Info) Description 04/07/2023 Abstract [facility] [address] [place], [place] [phone] Name, MD Lobo [address] [place] [address] Social History Tobacco Use Types Packs/Day Years Used Date Smoking Tobacco: Never Smokeless Tobacco: Never Alcohol Use Standard Drinks/Week Comments Never 0 (1 standard drink = 0.6 oz pur e alcohol) Depression Answer Date Recorded Patient Health Questionnaire-9 Score 0 01/22/2023 Depression Answer Date Recorded Patient Health Questionnaire-2 [...] documented as of this encounter Care Teams Nuclear Officer Relationship Specialty Start Date End Date Name, MD Lobo [address] [place], [place] [phone] PCP - General Family Medicine 02/26/16 documented as of this encounter
--- OUTSIDE RECORDS SUMMARY | 2024-11-18 11:52 | XMS_ITS | Clinical Summary ---
Author Organization [employer] Address [address] [place] [address] 7t [place] [address] Care Team Providers Care Director Physical Therapy Name Role Phone Name, Lobo BROWN Primary Care Provider [phone] Allergies Active Allergy Reactions Criticality Noted Date Comments Bee Venom 05/22/2007 Other reaction(s): Numbness, tingling or swelling of the lips, tongue or mouth Medications EPINEPHrine (Epipen) 0.3 MG/0.3ML injection syringe Inject 0.3 mL (0.3 mg) as directed 1 (one) time if needed for anaphylaxis for up to 1 dose. Inject into upper leg. Call 911 after use. 1 each 1 01/23/20 23 Active LORazepam (Ativan) 0.5 MG tablet Take 1 tablet (0.5 mg) by mouth if needed each day for anxiety. 30 tablet 01/23/20 23 Active atorvastatin (Lipitor) 20 MG tablet TAKE 1 TABLET BY MOUTH EVERY DAY IN THE MORNING 90 tablet 3 03/08/20 24 Active alendronate (Fosamax) 70 MG tabletIndicatio ns:Osteoporosis without current pathological fracture, unspecified osteoporosis type Take 1 tablet by mouth every week in the morning, at least 30 min before first food, beverage, or medication of day 12 tablet 3 04/15/20 24 Active sertraline (Zoloft) 50 MG tablet TAKE 1 TABLET BY MOUTH EVERY DAY IN THE MORNING 90 tablet 3 05/24/20 24 Active levothyroxine (Synthroid, Levoxyl) 88 MCG tablet TAKE 1 TABLET BY MOUTH BEFORE BREAKFAST 90 tablet 3 10/28/19 25 Active levothyroxine (Synthroid, Levoxyl) 88 MCG tablet TAKE 1 TABLET BY MOUTH BEFORE BREAKFAST 90 tablet 3 01/15/20 24 2024 Discontinued(R eorder (will not trigger notification to Pharmacy)) Active Problems Problem Noted Date Diagnosed Date Class 1 obesity 10/25/2024 Hammer toe 10/25/2024 Primary hyperparathyroidism 03/08/2024 Age-related osteoporosis wit hout current pathological fracture 03/08/2024 Hypercalcemia 12/05/2023 History of colonoscopy with polypectomy 01/23/20 23 Overview (01/22/2023): 2019 at [facility], hyperplastic polyp removed Repeat recommended in 10 years Osteoporosis 11/14/2022 Hyperlipidemia 01/20/2019 Depressive disorder 01/20/2019 Hernia 08/14/2017 Hypothyroidism 02/26/2016 Generalized anxiety disorder 02/26/2016 Allergic rhinitis 02/26/2016 Family history of breast cancer 02/01/2013 Overview (01/22/2023): Mother at age 65 Anxiety 11/13/2011 Bee allergy status 11/13/2011 Osteopenia 10/03/2010 Overview (07/31/2023): On Evista since 2005 stopped by navin in August 2015 Resolved Problems Problem Noted Date Diagnosed Date Resolved Date Neuropathy 05/11/2008 04/15/2024 Overview (01/22/2023): Left foot and stable for years Hypothyroid 05/11/2008 04/15/2024 Encounters Date Type Department Care Team Description 10/28/2024 10:30 AM EST Office Visit [facility] [address] [place] [phone] Name, MD Lobo Primary hyperparathyroidism (CMS/HCC) (Primary Dx); Acquired hypothyroidism 10/25/2024 Telephone [facility] [address] [place] [phone] [place]le [place] Chart Prep 10/21/2024 Travel from Last 3 Months Immunizations Name Administration Dates Next Due Influenza High-dose Quadriva lent Preservative Free 08/19/2022,07/20/2021,07/26/2020 Influenza injectable quadriv alent preservative free 07/31/2023,08/04/2019,09/13/2016 Influenza, High Dose Seasona l, Preservative Free 07/20/2018,06/27/2017 Influenza, IIV3, injectable 08/03/2015,1 ,08/05/2013,07/02,07/12/2011,08/10/2010,07/24/2009 ,08/18/2008,08/29/2007 Influenza, trivalent, adjuvanted 08/11/2024,05/28 Moderna Covid-19 Vaccine 6+ Bivalent 08/26/2022 Pneumococcal Conjugate PCV 13 07/20/2018 Pneumococcal Conjugate PCV 20 06/24/2024 Pneumococcal Polysaccharide PPSV23 12/06/2016 RSV Adjuvant 08/08/2023 TD (adult), 2 Lf tetanus tox oid, preservative free, adsorbed 08/07/2005 Td (adult) 08/07/2005 Tdap 07/31/2023,02/01/2013 Zoster, Recombinant 04/18/2020,11/03/2019 Zoster, live 07/02/2012 Social History Tobacco Use Types Packs/Day Years Used Date Smoking Tobacco: Never Smokeless Tobacco: Never Tobacco Cessation:Counseling Given: Not Answered Alcohol Use Standard Drinks/Week Comments Yes 7 [...] Orientation Straight 08/26/2022 10 :29 AM EDT Last Filed Vital Signs Vital Sign Reading Time Taken Comments Blood Pressure 126/74 10/28/2024 10:25 AM EST Pulse 66 10/28/2024 10:25 AM EST Temperature 35.7 ??C (96.2 ??F) 10/28/2024 10:[address] Respiratory Rate 16 10/28/2024 10:25 AM EST Oxygen Saturation 97% 06/24/2024 10:46 AM EDT Inhaled Oxygen Concentration - - Weight 78.5 kg (173 lb) 10/28/2024 10:25 AM EST Height 157.5 cm (5' 2 ) 10/28/2024 10:25 AM EST Body Mass Index 31.64 10/28/2024 10:25 AM EST Plan of Treatment Health Maintenance Due Date Last Done Comments CT Colonography 1950 FIT DNA/Cologuard 1950 FIT 1950 FOBT 1950 Sigmoidoscopy 1950 Hepatitis C Screening 1969 Mammogram 11/17/2024 11/17/2023, 10/28, 11/11/2022, Additional history exists Alcohol/Substance Use Screening 04/15/2025 04/15/2024 Depression Screening 04/15/2025 04/15/2024, 04/15/20 SDOH Screening 04/15/2025 04/15/2024 Tobacco Screening 10/28/2025 10/28/2024 Colonoscopy 02/04/2029 02/04/2019 Colorectal Cancer Screening 02/04/2029 DTaP/Tdap/Td Vaccines (3 - Td or Tdap) 07/31/2033 07/31/2023, 02/01/2013, 08/07/2005, Additional history exists Zoster Vaccines Completed 04/18/2020, 05/2020, 07/02/2012 RSV Patients and Patients Aged 60 years or older Completed 08/08/2023 Pneumococcal Vaccine: 65+ Years Completed 06/24/2024, 07/20/2018, 12/06/2016 COVID-19 Vaccine Completed 08/11/2024, , 08/26/2022, Additional history exists Influenza Vaccine Completed 08/11/2024, , 08/19/2022, Additional history exists HIB Vaccines Aged Out No longer eligi ble based on patient's age to complete this topic HPV Vaccines Aged Out No longer eligi ble based on patient's age to complete this topic Hepatitis A Vaccines Aged Out No long er eligible based on patient's age to complete this topic Hepatitis B Vaccines Aged Out No long er eligible based on patient's age to complete this topic IPV Vaccines Aged Out No longer eligi ble based on patient's age to complete this topic Meningococcal Vaccine Aged Out No pat tatyana eligible based on patient's age to complete this topic RSV under 20 months Aged Out No longe r eligible based on patient's age to complete this topic Rotavirus Vaccines Aged Out No longer eligible based on patient's age to complete this topic Procedures Procedure Name Priority Date/Time Associated Diagnosis Comments BI MAMMOGRAM SCREENING TOMOSYNTHESIS BILATERAL Routine 11/17/2023 10:40 AM EST HM COLONOSCOPY Routine 02/04/2019 from Last 3 Months or Most Recently Relevant to Health Maintenance Results * BI Mammogram Screening Tomosynthesis Bilateral (11/17/2023 10:40 AM EST) Anatomical Region Laterality Modality Breast Bilateral Mammography 11/17/2023 10:4 0 AM EST Narrative 12/02/2023 6:10 AM EST ? [facility] ? [address] ?[place] [address] ? Mammography Report ? Signed ? Patient: Aditya,Camila ?MR#: [id number] ? : 1950 ?Acct:[id number] ? Age/Sex: 73 / F ?ADM Date: 11/17/23 ? Loc: HO.MAMMO ? Attending Dr: Lobo Mo MD ? Ordering Physician: Name,Lobo BROWN ?Results: 1Negative ? Date of Service: 11/17/23 ?Follow Up: 1 Year From Orig ?? inal Mammogram ? Procedure(s): MM tomosynthesis screening BI ?? Accession Number(s): [id number] ? cc: Name,Lobo BROWN ? EXAMINATION: ?? MM SCREENING DIGITAL BREAST TOMOSYNTHESIS, BILATERAL ? CLINICAL INFORMATION: ? Screening. Asymptomatic. ? COMPARISON: ?? Mammography: This study is compared with prior exams dating back to ?? 2019. ? TECHNIQUE: ?? Digital breast tomosynthesis is performed in both the craniocaudal and ?? mediolateral oblique views along with computer-aided detection (CAD). ?? Synthesized 2D images are generated from the tomosynthesis. ? FINDINGS: ?? There are scattered areas of fibroglandular density (ACR BI-RADS breast ?? composition Category b). ? There are no significant masses, abnormal calcifications, or other ?? abnormalities. ? MM/MM tomosynthesis screening BI ?? IMPRESSION: ?? No mammographic evidence of malignancy. ? ASSESSMENT: ? BI-RADS BI-RADS 1 - Negative ? RECOMMENDATION: ?? Routine annual mammography screening. ? 1 year F/U ? This examination should not preclude the clinical evaluation of a ?? suspicious palpable abnormality. ? This patient's information was entered into a reminder system with a ?? target due date for their next mammogram. ? Dictated By: ?Kathie Doherty MD ? Signed By: ?<Electronically signed by Kathie Doherty MD in OV> ? 12/02/23605 ? DD/ 1040 ? TD/TT: ? Secondary Spanish Teacher: ? Procedure Note Any, Eleazar - 12/02/2023 [place] [facility] [address] [place] [address] Mammography Report Signed Patient: Elvira Burgess#: [id number] : 1950cct:[id number] Age/Sex: 73 / FADM Date: 11/17/23 Loc: HO.MAMMO Attending Dr: Lobo Mo MD Ordering Physician: Lobo Moesults: 1Negative Date of Service: 11/17/23Follow Up: 1 Year From Orig inal Mammogram Procedure(s): MM tomosynthesis screening BI Accession Number(s): [id number] cc: Lobo Mo MD EXAMINATION: MM SCREENING DIGITAL BREAST TOMOSYNTHESIS, BILATERAL CLINICAL INFORMATION: Screening. Asymptomatic. COMPARISON: Mammography: This study is compared with prior exams dating back to 2019. TECHNIQUE: Digital breast tomosynthesis is performed in both the craniocaudal and mediolateral oblique views along with computer-aided detection (CAD). Synthesized 2D images are generated from the tomosynthesis. FINDINGS: There are scattered areas of fibroglandular density (ACR BI-RADS breast composition Category b). There are no significant masses, abnormal calcifications, or other abnormalities. MM/MM tomosynthesis screening BI IMPRESSION: No mammographic evidence of malignancy. ASSESSMENT: BI-RADS BI-RADS 1 - Negative RECOMMENDATION: Routine annual mammography screening. 1 year F/U This examination should not preclude the clinical evaluation of a suspicious palpable abnormality. This patient's information was entered into a reminder system with a target due date for their next mammogram. Dictated By: Kathie Doherty MD Signed By: <Electronically signed by Kathie Doherty MD in OV> 12/02/23 0606 DD/ 1040 TD/TT: Secondary Spanish Teacher: Lobo Name IM BI PROCEDURES Edited Result - Final * Colonoscopy (02/04/2019) Colonoscopy Normal Normal Comment:repeat in 10 years Historical Provider HEALTH MAINTENANCE Final Result from Last 3 Months or Most Recently Relevant to Health Maintenance Insurance MEDICARE [facility] Care Teams Director Physical Therapy Relationship Specialty Start Date End Date Name, MD Lobo [address] [place] [id number] PCP - General Family Medicine 02/26/16
--- OUTSIDE RECORDS SUMMARY | 2024-11-18 11:52 | XMS_ITS | Encounter Summary ---
Author Organization [employer] Address [address] [place] [address] 7 [place] [address] Care Team Providers Care Employee Adviser Name Role Phone Name, Lobo BROWN Primary Care Provider [phone] Reason for Visit * Reason Onset Date Comments Pre-op 06/02/2024 Encounter Details Date Type Department Care Team ([facility] st Contact Info) Description 06/02/2024 Telephone [facility] MEDICINE [address] [place], [place] [phone] Name, MD Lobo [address] [place] [address] Pre-op Social History Tobacco Use Types Packs/Day Years [...] Recorded Patient Health Questionnaire-2 Score 0 04/15/2024 Comments Unknown Sex and Gender Information Value Date Recorded Sex Assigned at Female 08/26/2022 10:29 AM EDT Legal Sex Female 10:29 AM EDT Gender Identity Female 08/26/2022 10:29 AM EDT Sexual Orientation Straight 08/26/2022 10 :29 AM EDT documented as of this encounter Miscellaneous Notes * Telephone Encounter - Marnie Segura - 06/02/2024 4:38 PM EDT Pt agreed to come in on 06/24/24 at 10:30AM with Tanja. Appointment reminder letter mailed * Telephone Encounter - Grant Gatica - 06/02/2024 11:39 AM EDT Date of Surgery: 07/02/24 Surgical procedure being done: Caract Surgery Left Eye Type of anesthesia: MAC Lab needed: No EKG: No Surgeon's name: Dr. Didier Manzo Facility name: [facility] Surgeon's office number: [phone] EXT [facility] Surgeon's office fax number: [phone] Contact name (person you spoke with): Phoebe No office note from surgeon requested: Yes documented in this encounter Plan of Treatment Not on file documented as of this encounter Visit Diagnoses Not on filedocumented in this encounter Additional Health Concerns Assessment Noted Time PHQ-9 Depression Total Score: 0 04/15/20 9:00 AM EDT documented as of this encounter Care Teams Employee Adviser Relationship Specialty Start Date End Date Name, MD Lobo [address] [place] [address] PCP - General Family Medicine 02/26/16 documented as of this encounter
--- OUTSIDE RECORDS SUMMARY | 2024-11-18 11:52 | XMS_ITS | Encounter Summary ---
Author Organization [employer] Address [address] [facility] 7t [place] [address] Care Team Providers Care Fork Lift Mechanic Name Role Phone Name, Lobo BROWN Primary Care Provider [phone] Reason for Visit * Reason Onset Date Comments Record Request 11/18/2023 Encounter Details Date Type Department Care Team ([facility] st Contact Info) Description 11/18/2023 Telephone [facility] MEDICINE 230 [place], [place] [phone] Name, MD Lobo 230 [place] [address] Record Request Social History Tobacco Use Types Packs/Day Years [...] encounter Miscellaneous Notes * Telephone Encounter - Shaneka Heredia RN - 11/18/2023 4:36 PM EST Last office visit note and last lab results faxed to Lucía at [facility] as requested. Confirmation received. * Telephone Encounter - Mariama Gloria - 11/18/2023 11:51 AM EST Tc from lucía (RN) with [facility] requesting 07/31 OV notes and last lab results to be faxed to [phone]. Any questions, contact lucía at [phone] documented in this encounter Plan of Treatment Not on file documented as of this encounter Visit Diagnoses Not on filedocumented in this encounter Additional Health Concerns Assessment Noted Time PHQ-9 Depression Total Score: 0 01/23/20 23 2:25 PM EDT documented as of this encounter Care Teams Fork Lift Mechanic Relationship Specialty Start Date End Date Name, MD Lobo 230 [place] [address] PCP - General Family Medicine 02/26/16 documented as of this encounter
== END 2024-11-18 10:13 | disposition home or self-care (01) ==
LOC: HO.MAMMO 10:12
PROVIDERS: PCP Internal Medicine Geriatric Medicine; Visit Provider Internal Medicine Geriatric Medicine
DX: Z12.31 Encounter for screening mammogram for malignant neoplasm of breast (principal)
CPT/HCPCS: 77063; 77067

== ENCOUNTER → 2024-11-18 10:30 | Outpatient (BNV) | payer MEDICARE, OTHER, SELFPAY | PROVIDERS: PCP Internal Medicine Geriatric Medicine; Visit Provider Internal Medicine | DX: Z12.31 Encounter for screening mammogram for malignant neoplasm of breast (principal) | CPT/HCPCS: 77063; 77067 ==

== ENCOUNTER 2025-02-09 12:37 | Outpatient (REF) | payer MEDICARE, OTHER, SELFPAY ==
--- NOTE | ~2025-02-09 | US_ITS ---
EXAMINATION: MM DIAGNOSTIC DIGITAL BREAST TOMOSYNTHESIS, RIGHT Limited right breast ultrasound. CLINICAL INFORMATION: Call back from screening for right asymmetry. COMPARISON: Mammography: Priors on PACS. TECHNIQUE: Digital breast tomosynthesis is performed in both the craniocaudal and mediolateral oblique views along with computer-aided detection (CAD). Synthesized 2D images are generated from the tomosynthesis. FINDINGS: There are scattered areas of fibroglandular density (ACR BI-RADS breast composition Category b). Previously seen asymmetry in the superior right breast on MLO view does not persist on additional imaging projections and likely represented overlapping breast tissue. There are postsurgical changes. There are no significant masses, abnormal calcifications, or other abnormalities. Targeted color doppler ultrasound demonstrates normal fibroglandular breast tissue scanning from 10-2:00. There is no sonographic abnormality. US/US breast RT limited mamm only IMPRESSION: No mammographic evidence of malignancy. ASSESSMENT: BI-RADS BI-RADS 1 - Negative RECOMMENDATION: 1 year F/U Results were provided to the patient at time of visit by the technologist. This patient's information was entered into a reminder system with a target due date for their next mammogram. Electronically signed by: Pam Reyes DO 02/10/2025 02:26 PM EDT
--- OUTSIDE RECORDS SUMMARY | 2025-02-09 14:54 | XMS_ITS | Encounter Summary ---
Author Organization [employer] Address [address] [facility] [address] 7[address] [place] [address] Care Team Providers Care Senior Javascript Engineer Name Role Phone Name, Lobo BROWN Primary Care Provider [phone] Encounter Details Date Type Department Care Team (Late st Contact Info) Description 12/02/2023 Abstract [facility] MEDICINE 230 [place], [place] [phone] Name, MD Lobo 230 [place] [address] Social History Tobacco Use Types Packs/Day Years [...] as of this encounter Plan of Treatment Upcoming Encounters Date Type Department Care Team (Late st Contact Info) Description 03/09/2025 11:15 AM EDT Office Visit [facility] MEDICINE [address] [place] [address] Name, MD Lobo [address] [place] [address] documented as of this encounter Procedures Procedure [...] documented as of this encounter Care Teams Senior Javascript Engineer Relationship Specialty Start Date End Date Name, MD Lobo [address] [place] [address] PCP - General Family Medicine 02/26/16 documented as of this encounter
--- OUTSIDE RECORDS SUMMARY | 2025-02-09 14:54 | XMS_ITS | Encounter Summary ---
Author Organization [facility] Address [address] [place] [address] 7 [place] [address] Care Team Providers Care It Quality Analyst Name Role Phone Name, Lobo BROWN Primary Care Provider [phone] Encounter Details Date Type Department Care Team (Late st Contact Info) Description 04/07/2023 Abstract [facility] MEDICINE [address] [place] [address] [phone] NameLobo MD [address] [place] [address] [phone] Social History Tobacco Use Types Packs/Day Years [...] Description 03/09/2025 11:15 AM EDT Office Visit [facility] MEDICINE [address] [place] [address] [phone] NameLobo MD [address] [place] [address] [phone] documented as of this encounter Visit Diagnoses Not on filedocumented in this encounter Additional Health Concerns Assessment Noted Time PHQ-9 Depression Total Score: 0 01/23/20 23 2:25 PM EDT documented as of this encounter Care Teams It Quality Analyst Relationship Specialty Start Date End Date Name, MD Lobo 230 [place] [address] PCP - General Family Medicine 02/26/16 documented as of this encounter
--- OUTSIDE RECORDS SUMMARY | 2025-02-09 14:54 | XMS_ITS | Patient Health Record ---
Author Organization [facility] [place] Address [address] [facility] [place] [facility] [place] [address] Care Team Providers Care Grizzly Worker Name Role Phone Name Lobo BROWN Primary Care Provider Karime Powers Unavailable [phone] Reason For Referral No Information Medications Medication SIG (Take, Route, Frequency, Duration) Notes Start Date End Date Status Glucosamine Chondroitin Complx Active Fish Oil Active Calcium + D Active Levothyroxine Sodium 100 MCG 1 tablet in the morning on an empty stomach Orally Once a day for 30 day(s) Active Sertraline HCl 50 MG 1 tablet Orally Onc e a day for 30 day(s) Active LORazepam 0.5 MG 1 tablet at bedtime as needed Orally Once a day Active Atorvastatin Calcium 20 MG 1 tablet Oral ly Once a day for 30 day(s) Active Calcium + D Active Hair Skin and Nails Formula Active Glucosamine Chondr 500 Complex Active Hair Skin and Nails Formula Active Fish Oil Active LORazepam 0.5 MG 1 tablet at bedtime as needed Orally Once a day Active Atorvastatin Calcium 20 MG 1 tablet Oral ly Once a day for 30 day(s) Active Levothyroxine Sodium 100 MCG 1 tablet in the morning on an empty stomach Orally Once a day for 30 day(s) Active Sertraline HCl 50 MG 1 tablet Orally Onc e a day for 30 day(s) Active Social History Tobacco Use: Social History Observation Description Date Details (start date - stop date) Never Smoker NA - NA Tobacco Use/Smoking Question Answer Notes Are you a: nonsmoker Additional Findings: Tobacco Non-User Current no n-smoker Alcohol Screen Question Answer Notes Did you have a drink contain ing alcohol in the past year? Yes How often did you have a dri nk containing alcohol in the past year? 2 to 3 times a week (3 points) Points 3 Interpretation Positive Tobacco use other than smoking: Question Answer Notes Are you an other tobacco user? No Problems Problem Type SNOMED Code ICD Code Onset Dates Problem Status W/U Status Risk Notes Problem [id number] Hammer toe of right foot (M20.41) Active confirmed Problem 997815552 Hammer toe of left foot (M20.42) Active confirmed Plan Of Treatment No Information Insurance Providers Payer Name Payer Address Payer Phone Subscriber Number Group Number Insured Name Patient Relationship to Insured Coverage Start Date Coverage End Date Medicare National Govt Svcs Inc [address] [place] [address] [id number] Camila Burgess Self - patient is the insured [employer] ([employer]) [address] [place] [address] [phone] [id number] Camila Burgess Self - patient is the insured Medical (General) History Medical History History ICD Code Anemia Anxiety Back,Hip,and Knee pain CAD (Cholesterol) Depression Numbness thyroid Measles Mumps Chicken pox Surgical History Surgery Date(Month/Year) lumpectomy, right breast 11/1971 D&C 1979, 1988
--- OUTSIDE RECORDS SUMMARY | 2025-02-09 14:54 | XMS_ITS | Encounter Summary ---
Author Organization [employer] Address [address] [place] [address] 7 [place] [address] Care Team Providers Care International Student Counselor Name Role Phone Name, Lobo BROWN Primary Care Provider [phone] Reason for Visit * Reason Onset Date Comments request 01/30/2024 Encounter Details Date Type Department Care Team ([facility] st Contact Info) Description 01/30/2024 Telephone [facility] MEDICINE 230 [place], [place] [phone] Name, MD Lobo [address] [place] [address] request Social History Tobacco Use Types Packs/Day [...] documented in this encounter Plan of Treatment Upcoming Encounters Date Type Department Care Team (Late st Contact Info) Description 03/09/2025 11:15 AM EDT Office Visit [facility] MEDICINE [address] [place] [address] Name, MD Lobo [address] [place] [address] documented as of this encounter Visit Diagnoses Not on filedocumented in this encounter Additional Health Concerns Assessment Noted Time PHQ-9 Depression Total Score: 0 01/23/20 23 2:25 PM EDT documented as of this encounter Care Teams International Student Counselor Relationship Specialty Start Date End Date Name, MD Lobo [address] [place] [address] PCP - General Family Medicine 02/26/16 documented as of this encounter
--- OUTSIDE RECORDS SUMMARY | 2025-02-09 14:54 | XMS_ITS | Clinical Summary ---
Author Organization [employer] Address [address] [place] [address] 7t [place] [address] Care Team Providers Care Jewel Hole Gauger Name Role Phone Name, Lobo BROWN Primary Care Provider [phone] Allergies Active Allergy Reactions Criticality Noted Date Comments Bee Venom 05/22/2007 Other reaction(s): Numbness, tingling or swelling of the lips, tongue or mouth Medications EPINEPHrine (Epipen) 0.3 MG/0.3ML injection syringe Inject 0.3 mL (0.3 mg) as directed 1 (one) time if needed for anaphylaxis for up to 1 dose. Inject into upper leg. Call 911 after use. 1 each 1 3 Active LORazepam (Ativan) 0.5 MG tablet Take 1 tablet (0.5 mg) by mouth if needed each day for anxiety. 30 tablet 3 Active atorvastatin (Lipitor) 20 MG tablet TAKE 1 TABLET BY MOUTH EVERY DAY IN THE MORNING 90 tablet 3 4 Active alendronate (Fosamax) 70 MG tabletIndication s:Osteoporosis without current pathological fracture, unspecified osteoporosis type Take 1 tablet by mouth every week in the morning, at least 30 min before first food, beverage, or medication of day 12 tablet 3 4 Active sertraline (Zoloft) 50 MG tablet TAKE 1 TABLET BY MOUTH EVERY DAY IN THE MORNING 90 tablet 3 4 Active levothyroxine (Synthroid, Levoxyl) 88 MCG tablet TAKE 1 TABLET BY MOUTH BEFORE BREAKFAST 90 tablet 3 5 Active Active Problems Problem Noted Date Diagnosed Date Class 1 obesity 10/25/2024 Hammer toe 10/25/2024 Primary hyperparathyroidism 03/08/2024 Age-related osteoporosis wit hout current pathological fracture 03/08/2024 Hypercalcemia 12/05/2023 History of colonoscopy with polypectomy 01/23/20 Overview (01/22/2023): 2019 at [facility], hyperplastic polyp removed Repeat recommended in 10 [...] Encounters Date Type Department Care Team Description 11/18/2024 Orders Only [facility] MEDICINE [address] [place] [address] Name, MD Lobo from Last 3 Months Immunizations Name Administration [...] housing situation today? I have marielajuancarlos celis 04/15/[address] you [...] 10/28/2024 10:25 AM EST Plan of Treatment Upcoming Encounters Date Type Department Care Team (Late st Contact Info) Description 03/09/2025 11:15 AM EDT Office Visit [facility] MEDICINE [address] [place] [address] Name, MD Lobo [address] [place] [address] Health Maintenance Due Date Last Done Comments CT Colonography 1950 FIT DNA/Cologuard 1950 FIT 1950 FOBT 1950 Sigmoidoscopy 1950 Hepatitis C Screening 1969 Diagnostic Breast Imaging 02/09/2025 11/17/2023, Alcohol/Substance Use Screening 04/15/2025 04/15/2024 Depression Screening 04/15/2025 04/15/2024, 04/15/20 SDOH Screening 04/15/2025 04/15/2024 Tobacco Screening 10/28/2025 10/28/2024 Colonoscopy 02/04/2029 02/04/2019 Colorectal Cancer Screening 02/04/2029 DTaP/Tdap/Td Vaccines (3 - Td or Tdap) 07/31/2033 07/31/2023, 02/01/2013, 08/07/2005, Additional history exists Zoster Vaccines Completed 04/18/2020, 05/2020, 07/02/2012 RSV Patients and Patients Aged 60 years or older Completed 08/08/2023 Pneumococcal Vaccine: 50+ Years Completed 06/24/2024, 07/20/2018, 12/06/2016 COVID-19 Vaccine [...] Comments BI MAMMOGRAM SCREENING TOMOSYNTHESIS BILATERAL Routine 11/18/2024 10:30 AM EST MAMMOGRAPHY Routine 11/17/2023 COLONOSCOPY Routine 02/04/2019 from Last 3 Months or Most Recently Relevant to Health Maintenance Results * BI Mammogram Screening Tomosynthesis Bilateral (11/18/2024 10:30 AM EST) Anatomical Region Laterality Modality Breast Bilateral Mammography 11/18/2024 10:3 0 AM EST Narrative 11/29/2024 8:56 AM EST ? [facility] ? [address] ?[place] [address] ? Mammography Report ? Signed ? Patient: Aditya,Camila ?MR#: [id number] ? : 1950 ?Acct:[id number] ? Age/Sex: 74 / F ?ADM Date: 11/18/24 ? Loc: HO.MAMMO ? Attending : Lobo Mo MD ? Ordering Physician: Name,Lobo BROWN ?Results: 0Incomplet ?? e: Needs Additional Imaging Evaluation ? Date of Service: 11/18/24 ?Follow Up: Additional Imagi ?? ng ? Procedure(s): MM tomosynthesis screening BI ?? Accession Number(s): [id number] ? cc: Name,Lobo BROWN ? EXAMINATION: ?? MM SCREENING DIGITAL BREAST TOMOSYNTHESIS, BILATERAL ? CLINICAL INFORMATION: ? Screening. Asymptomatic. ? COMPARISON: ?? Mammography: Comparison is made with available priors ? TECHNIQUE: ?? Digital breast mammography with tomosynthesis is performed in both the ?? craniocaudal and mediolateral oblique views along with computer-aided ?? detection (CAD). ? FINDINGS: ?? There are scattered areas of fibroglandular density (ACR BI-RADS breast ?? composition Category b). ? Left: ?? There are no significant masses, abnormal calcifications, or other ?? abnormalities. ? Right: ?? Focal asymmetry upper central breast anterior to middle depth. ?? No suspicious calcifications or other abnormal findings. ?? Postsurgical changes. ? MM/MM tomosynthesis screening BI ?? IMPRESSION: ?? Additional imaging is recommended ? ASSESSMENT: ? BI-RADS BI-RADS 0 - Incomplete: Needs additional Imaging. ? RECOMMENDATION: ?? 1. Additional views of the right breast ?? 2. Targeted ultrasound if warranted after review of the additional ?? views. ?? 3. Radiology department staff will contact the patient for additional ?? imaging. ? Additional Imaging required ? This examination should not preclude the clinical evaluation of a ?? suspicious palpable abnormality. ? This patient's information was entered into a reminder system with a ?? target due date for their next mammogram. ? Electronically signed by: ??Pam Reyes DO ??11/29/2024 08:53 AM EST ? Dictated By: ?Pam Reyes DO ? Signed By: ?<Electronically signed by Pam Reyes, DO in OV> ? 11/29/24 0853 ? DD/ 1030 ? TD/TT: 11/18/24 1048 ? Corporate Safety Coordinator: ? Procedure Note Any, Image - 11/29/2024 [place] [facility] [address] [place] [address] Mammography Report Signed Patient: Elvira Burgess#: [id number] : 1950cct:[id number] Age/Sex: 74 / FADM Date: 11/18/24 Loc: HO.MAMMO Attending Dr: Lobo Mo MD Ordering Physician: Lobo Moesults: 0Incomplet e: Needs Additional Imaging Evaluation Date of Service: 11/18/24Follow Up: Additional Imagi ng Procedure(s): MM tomosynthesis screening BI Accession Number(s): [id number] cc: Lobo Mo MD EXAMINATION: MM SCREENING DIGITAL BREAST TOMOSYNTHESIS, BILATERAL CLINICAL INFORMATION: Screening. Asymptomatic. COMPARISON: Mammography: Comparison is made with available priors TECHNIQUE: Digital breast mammography with tomosynthesis is performed in both the craniocaudal and mediolateral oblique views along with computer-aided detection (CAD). FINDINGS: There are scattered areas of fibroglandular density (ACR BI-RADS breast composition Category b). Left: There are no significant masses, abnormal calcifications, or other abnormalities. Right: Focal asymmetry upper central breast anterior to middle depth. No suspicious calcifications or other abnormal findings. Postsurgical changes. MM/MM tomosynthesis screening BI IMPRESSION: Additional imaging is recommended ASSESSMENT: BI-RADS BI-RADS 0 - Incomplete: Needs additional Imaging. RECOMMENDATION: 1. Additional views of the right breast 2. Targeted ultrasound if warranted after review of the additional views. 3. Radiology department staff will contact the patient for additional imaging. Additional Imaging required This examination should not preclude the clinical evaluation of a suspicious palpable abnormality. This patient's information was entered into a reminder system with a target due date for their next mammogram. Electronically signed by: Pam Reyes DO 11/29/2024 08:53 AM EST Dictated By: Pam Reyes DO Signed By: <Electronically signed by Pam Reyes DO in OV> 11/29/24 0853 DD/ 1030 TD/TT: 11/18/24 1048 Corporate Safety Coordinator: Lobo Mo MD IMG BI PROCEDURES Final Result * Mammography (11/17/2023) Mammogram Negative Comment:Bi-rads 1 Negative Anatomical Region Laterality Modality Other us Lobo Mo MD HEALTH MAINTENANCE Final Result * Colonoscopy (02/04/2019) Colonoscopy Normal Normal Comment:repeat in 10 years [facility] Provider HEALTH MAINTENANCE Final Result from Last 3 Months or Most Recently Relevant to Health Maintenance Insurance [place] [phone] [facility] Care Teams Jewel Hole Gauger Relationship Specialty Start Date End Date Name, MD Lobo [address] [place] [address] PCP - General Family Medicine 02/26/16
--- OUTSIDE RECORDS SUMMARY | 2025-02-09 14:54 | XMS_ITS | Encounter Summary ---
Author Organization [employer] Address [address] [facility] 7t [place] [address] Care Team Providers Care Shuttle Fixer Name Role Phone Name, Lobo BROWN Primary Care Provider [phone] Reason for Visit * Reason Onset Date Comments Record Request 11/18/2023 Encounter Details Date Type Department Care Team ([facility] st Contact Info) Description 11/18/2023 Telephone [facility] MEDICINE 230 [place], [place] [phone] Name, MD Lobo [address] [place] [address] Record Request Social History Tobacco Use Types [...] last lab results faxed to Lucía at [facility] Endocrinology as requested. Confirmation received. * Telephone Encounter - Mariama Gloria - 11/18/2023 11:51 AM EST Tc from lucía (MEETA) with [facility] requesting 07/31 OV notes and last lab results to be faxed to [phone]. Any questions, contact lucía at [phone] documented in this encounter Plan of Treatment Upcoming Encounters Date Type Department Care Team (Late st Contact Info) Description 03/09/2025 11:15 AM EDT Office Visit [facility] MEDICINE [address] [place] [address] Name, MD Lobo [address] [place] [address] documented as of this encounter Visit Diagnoses Not on filedocumented in this encounter Additional Health Concerns Assessment Noted Time PHQ-9 Depression Total Score: 0 01/23/20 23 2:25 PM EDT documented as of this encounter Care Teams Shuttle Fixer Relationship Specialty Start Date End Date Name, MD Lobo [address] [place] [address] PCP - General Family Medicine 02/26/16 documented as of this encounter
--- OUTSIDE RECORDS SUMMARY | 2025-02-09 14:54 | XMS_ITS | Encounter Summary ---
Author Organization [employer] Address [address] [place] [address] 7 [place] [address] Care Team Providers Care Automation Engineering Technician Name Role Phone Name, Lobo BROWN Primary Care Provider [phone] Reason for Visit * Reason Onset Date Comments Pre-op 06/02/2024 Encounter Details Date Type Department Care Team ([facility] st Contact Info) Description 06/02/2024 Telephone [facility] MEDICINE 230 [place], [place] [phone] Name, MD Lobo [address] [place] [address] Pre-op Social History Tobacco Use Types Packs/Day [...] Surgeon's name: Dr. Didier Manzo Facility name: [facility] Surgeon's office number: [phone] EXT [facility] Surgeon's office fax number: [phone] Contact name (person you spoke with): Phoebe No office note from surgeon requested: Yes documented in this encounter Plan of Treatment Upcoming Encounters Date Type Department Care Team ([facility] st Contact Info) Description 03/09/2025 11:15 AM EDT Office Visit [facility] MEDICINE [address] [place] [address] Name, MD Lobo [address] [place] [address] documented as of this encounter Visit Diagnoses Not on filedocumented in this encounter Additional Health Concerns Assessment Noted Time PHQ-9 Depression Total Score: 0 04/15/20 24 9:00 AM EDT documented as of this encounter Care Teams Automation Engineering Technician Relationship Specialty Start Date End Date Name, MD Lobo [address] [place] [address] PCP - General Family Medicine 02/26/16 documented as of this encounter
== END 2025-02-09 12:38 | disposition home or self-care (01) ==
LOC: HO.MAMMO 12:37
PROVIDERS: PCP Internal Medicine Geriatric Medicine; Visit Provider Internal Medicine Geriatric Medicine
DX: N64.89 Other specified disorders of breast (principal)
CPT/HCPCS: 76642; 77061; 77065

== ENCOUNTER → 2025-02-09 13:00 | Outpatient (BNV) | payer MEDICARE, OTHER, SELFPAY | PROVIDERS: PCP Internal Medicine Geriatric Medicine; Visit Provider Internal Medicine | DX: R92.8 Other abnormal and inconclusive findings on diagnostic imaging of breast (principal) | CPT/HCPCS: 76642; 77065; G0279 ==

== ENCOUNTER 2025-03-14 08:57 | Outpatient (REF) | payer MEDICARE, OTHER, SELFPAY ==
--- OUTSIDE RECORDS SUMMARY | 2025-03-14 09:08 | XMS_ITS | Encounter Summary ---
Author Organization [employer] Address [address] [facility] [address] [place] [address] Care Team Providers Care Executive Chairman Name Role Phone Name, Lobo BROWN Primary Care Provider [phone] Encounter Details Date Type Department Care Team (Latest Contact Info) Description 03/09/2025 Travel Social History Tobacco Use Types Packs/Day [...] documented as of this encounter Care Teams Executive Chairman Relationship Specialty Start Date End Date Name, MD Lobo [address] [place] [id number] PCP - General Family Medicine 02/26/16 documented as of this encounter
--- OUTSIDE RECORDS SUMMARY | 2025-03-14 09:08 | XMS_ITS | Clinical Summary ---
Author Organization [employer] Address [address] [place] [address] 7t [place] [address] Care Team Providers Care Filler Shredder Name Role Phone Name, Lobo BROWN Primary Care Provider Allergies Active Allergy Reactions Criticality Noted Date Comments Bee Venom 05/22/2007 Other reaction(s): Numbness, tingling or swelling of the lips, tongue or mouth Medications EPINEPHrine (Epipen) 0.3 MG/0.3ML injection syringe Inject 0.3 mL (0.3 mg) as directed 1 (one) time if needed for anaphylaxis for up to 1 dose. Inject into upper leg. Call 911 after use. 1 each 1 01/23/20 23 Active atorvastatin (Lipitor) 20 MG tablet TAKE 1 TABLET BY MOUTH EVERY DAY IN THE MORNING 90 tablet 3 03/08/20 24 Active levothyroxine (Synthroid, Levoxyl) 88 MCG tablet TAKE 1 TABLET BY MOUTH BEFORE BREAKFAST 90 tablet 3 10/28/19 25 Active LORazepam (Ativan) 0.5 MG tablet Take 1 tablet (0.5 mg) by mouth if needed each day for anxiety. 30 tablet 01/23/20 23 2024 Discontinued alendronate (Fosamax) 70 MG tabletIndicatio ns:Osteoporosis without current pathological fracture, unspecified osteoporosis type Take 1 tablet by mouth every week in the morning, at least 30 min before first food, beverage, or medication of day 12 tablet 3 04/15/20 24 2024 Discontinued sertraline (Zoloft) 50 MG tablet TAKE 1 TABLET BY MOUTH EVERY DAY IN THE MORNING 90 tablet 3 05/24/20 24 2024 Discontinued(T herapy completed) Active Problems Problem Noted Date Diagnosed Date Class 1 obesity 10/25/2024 Hammer toe 10/25/2024 Primary hyperparathyroidism 03/08/2024 Age-related osteoporosis wit hout current pathological fracture 03/08/2024 Hypercalcemia 12/05/2023 S/P subtotal parathyroidectomy 01/22/2023 Overview (01/22/2023): 2019 at [facility], hyperplastic polyp removed Repeat recommended in 10 [...] Encounters Date Type Department Care Team Description 03/11/[address] [facility] [address] [place] [id number] Lobo Mo MD 03/09/2025 11:15 AM EDT Office Visit [facility] [address] [place] [address] [phone] NameLobo MD Osteoporosis without current pathological fracture, unspecified osteoporosis type (Primary Dx); Primary hyperparathyroidism ([facility]/HCC); S/P subtotal parathyroidectomy; Hypothyroidism, unspecified type; Hyperlipidemia, unspecified hyperlipidemia type; On statin therapy 03/09/2025 Travel 03/08/[address] [facility] [address] [place] [phone] Lobo Mo MD Chart Prep 03/08/2025 Travel 02/09/[address] [facility] [address] [place] [address] Name, MD Lobo from Last 3 Months Immunizations Immunization Administration Dates Next Due Influenza High-dose Quadriva [...] your housing situation today? I have mariela sing 04/15/[address] you li [...] Sign Reading Time Taken Comments Blood Pressure 127/75 03/09/2025 11:20 AM EDT Pulse 84 03/09/2025 11:20 AM EDT Temperature 37.3 ??C (99.1 ??F) 03/09/2025 11:20 AM E DT Respiratory Rate 18 03/09/2025 11:20 AM EDT Oxygen Saturation 97% 03/09/2025 11:20 AM EDT Inhaled Oxygen Concentration - - Weight 79.2 kg (174 lb 9.6 oz) 03/09/2025 11:20 AM EDT Height 160 cm (5' 3 ) 03/09/2025 11:20 AM EDT Body Mass Index 30.93 03/09/2025 11:20 AM EDT Plan of Treatment Health Maintenance Due Date Last Done Comments CT Colonography 1950 FIT DNA/Cologuard 1950 FIT 1950 FOBT 1950 Sigmoidoscopy 1950 Hepatitis C Screening 1969 COVID-19 Vaccine ( season) 2025 08/11/2024, 08/08/2023, 08/26/2022, Additional history exists Alcohol/Substance Use Screening 04/15/2025 04/15/2024 Depression Screening 04/15/2025 04/15/2024, 04/15/20 SDOH Screening 04/15/2025 04/15/2024 Mammogram 02/09/2026 02/09/2025, 10/28, 11/17/2023, Additional history exists Tobacco Screening 03/09/2026 03/09/2025 Colonoscopy 02/04/2029 02/04/2019 Colorectal Cancer Screening 02/04/2029 DTaP/Tdap/Td Vaccines (3 - Td or Tdap) 07/31/2033 07/31/2023, 02/01/2013, 08/07/2005, Additional history exists Zoster Vaccines Completed 04/18/2020, 05/2020, 07/02/2012 RSV Patients and Patients Aged 60 years or older Completed 08/08/2023 Pneumococcal Vaccine: 50+ Years Completed 06/24/2024, 07/20/2018, 12/06/2016 Influenza Vaccine Completed 08/11/2024, , 08/19/2022, Additional [...] patient's age to complete this topic Meningococcal B Vaccine Aged Out No l onger eligible based on patient's age to complete [...] Name Priority Date/Time Associated Diagnosis Comments BI US BREAST LIMITED RIGHT Routine 02/09/2025 12:52 PM EDT BI MAMMOGRAM DIAGNOSTIC TOMOSYNTHESIS ADDED VIEW RIGHT Routine 02/09/2025 12:43 PM EDT HM COLONOSCOPY Routine 02/04/2019 from Last 3 Months or Most Recently Relevant to Health Maintenance Results * BI US Breast Limited Right (02/09/2025 12:52 PM EDT) Anatomical Region Laterality Modality Breast Right Ultrasound 02/09/2025 12:5 2 PM EDT Narrative 02/10/2025 2:29 PM EDT ? [facility] ? [address] ?[place] [address] ? Ultrasound Report ? Signed ? Patient: Aditya,Camila ?MR#: [id number] ? : 1950 ?Acct:[id number] ? Age/Sex: 74 / F ?ADM Date: 02/09/25 ? Loc: HO.MAMMO ? Attending Dr: Lobo Mo MD ? Ordering Physician: Lobo Mo MD ?? Date of Service: 02/09/25 ?? Procedure(s): US breast RT limited mamm only ?? Accession Number(s): [id number] ? cc: Lobo Mo MD ? EXAMINATION: ?? MM DIAGNOSTIC DIGITAL BREAST TOMOSYNTHESIS, RIGHT ?? Limited right breast ultrasound. ? CLINICAL INFORMATION: ? Call back from screening for right asymmetry. ? COMPARISON: ?? Mammography: [facility]ors on PACS. ? TECHNIQUE: ?? Digital breast tomosynthesis is performed in both the craniocaudal and ?? mediolateral oblique views along with computer-aided detection (CAD). ?? Synthesized 2D images are generated from the tomosynthesis. ? FINDINGS: ?? There are scattered areas of fibroglandular density (ACR BI-RADS breast ?? composition Category b). ?? Previously seen asymmetry in the superior right breast on MLO view does ?? not persist on additional imaging projections and likely represented ?? overlapping breast tissue. There are postsurgical changes. ?? There are no significant masses, abnormal calcifications, or other ?? abnormalities. ? Targeted color doppler ultrasound demonstrates normal fibroglandular ?? breast tissue scanning from 10-2:00. There is no sonographic ?? abnormality. ? US/ breast RT limited mamm only ?? IMPRESSION: ?? No mammographic evidence of malignancy. ? ASSESSMENT: ? BI-RADS BI-RADS 1 - Negative ? RECOMMENDATION: ?? 1 year F/U ? Results were provided to the patient at time of visit by the ?? technologist. ? This patient's information was entered into a reminder system with a ?? target due date for their next mammogram. ? Electronically signed by: ??Pam Reyes DO ??02/10/2025 02:26 PM EDT ? Dictated By: ?Pam Reyes DO ? Signed By: ?<Electronically signed by Pam Reyes, DO in OV> ? 02/10/25 1426 ? DD/ 1252 ? TD/TT: 02/09/25 1302 ? Circulation Director: ? Procedure Note Any, Image - 02/10/2025 [facility] [address] [place] [address] Ultrasound Report Signed Patient: Elvira Burgess#: [id number] : 1950cct:[id number] Age/Sex: 74 / FADM Date: 02/09/25 Loc: HO.MAXIMO Attending Dr: Lobo Mo MD Ordering Physician: Lobo Mo MD Date of Service: 02/09/25 Procedure(s): US breast RT limited mamm only Accession Number(s): [id number] cc: Lobo Mo MD EXAMINATION: MM DIAGNOSTIC DIGITAL BREAST TOMOSYNTHESIS, RIGHT Limited right breast ultrasound. CLINICAL INFORMATION: Call back from screening for right asymmetry. COMPARISON: Mammography: Priors on PACS. TECHNIQUE: Digital breast tomosynthesis is performed in both the craniocaudal and mediolateral oblique views along with computer-aided detection (CAD). Synthesized 2D images are generated from the tomosynthesis. FINDINGS: There are scattered areas of fibroglandular density (ACR BI-RADS breast composition Category b). Previously seen asymmetry in the superior right breast on MLO view does not persist on additional imaging projections and likely represented overlapping breast tissue. There are postsurgical changes. There are no significant masses, abnormal calcifications, or other abnormalities. Targeted color doppler ultrasound demonstrates normal fibroglandular breast tissue scanning from 10-2:00. There is no sonographic abnormality. US/US breast RT limited mamm only IMPRESSION: No mammographic evidence of malignancy. ASSESSMENT: BI-RADS BI-RADS 1 - Negative RECOMMENDATION: 1 year F/U Results were provided to the patient at time of visit by the technologist. This patient's information was entered into a reminder system with a target due date for their next mammogram. Electronically signed by: Pam Reyes DO 02/10/2025 02:26 PM EDT Dictated By: Pam Reyes DO Signed By: <Electronically signed by Pam Reyes DO in OV> 02/10/25 1426 DD/ 1252 TD/TT: 02/09/25 1302 Circulation Director: us Lobo Name IMG US PROCEDURES Final Result * BI Mammogram Diagnostic Tomosynthesis added right (02/09/2025 12:43 PM EDT) Anatomical Region Laterality Modality Breast Left Mammography 02/09/2025 12:4 3 PM EDT Narrative 02/10/2025 2:29 PM EDT ? [facility] ? [address] ?[place] [address] ?[phone] ? Mammography Report ? Signed ? Patient: Aditya,Camila ?MR#: [id number] ? : 1950 ?Acct:[id number] ? Age/Sex: 74 / F ?ADM Date: 04/16/25 ? Loc: HO.MAMMO ? Attending Dr: Lobo Mo MD ? Ordering Physician: Chely,Lobo BROWN ?Results: 1Negative ? Date of Service: 02/09/25 ?Follow Up: 1 Year From Orig ?? inal Mammogram ? Procedure(s): MM tomosynthesis added views R ?? Accession Number(s): [id number] ? cc: Chely,Lobo BROWN ? EXAMINATION: ?? MM DIAGNOSTIC DIGITAL BREAST TOMOSYNTHESIS, RIGHT ?? Limited right breast ultrasound. ? CLINICAL INFORMATION: ? Call back from screening for right asymmetry. ? COMPARISON: ?? Mammography: Priors on PACS. ? TECHNIQUE: ?? Digital breast tomosynthesis is performed in both the craniocaudal and ?? mediolateral oblique views along with computer-aided detection (CAD). ?? Synthesized 2D images are generated from the tomosynthesis. ? FINDINGS: ?? There are scattered areas of fibroglandular density (ACR BI-RADS breast ?? composition Category b). ?? Previously seen asymmetry in the superior right breast on MLO view does ?? not persist on additional imaging projections and likely represented ?? overlapping breast tissue. There are postsurgical changes. ?? There are no significant masses, abnormal calcifications, or other ?? abnormalities. ? Targeted color doppler ultrasound demonstrates normal fibroglandular ?? breast tissue scanning from 10-2:00. There is no sonographic ?? abnormality. ? MM/MM tomosynthesis added views R ?? IMPRESSION: ?? No mammographic evidence of malignancy. ? ASSESSMENT: ? BI-RADS BI-RADS 1 - Negative ? RECOMMENDATION: ?? 1 year F/U ? Results were provided to the patient at time of visit by the ?? technologist. ? This patient's information was entered into a reminder system with a ?? target due date for their next mammogram. ? Electronically signed by: ??Pam Reyes DO ??02/10/2025 02:26 PM EDT ? Dictated By: ?Pam Reyes DO ? Signed By: ?<Electronically signed by Pam Reyes, DO in OV> ? 02/10/25 1426 ? DD/ 1243 ? TD/TT: 02/09/25 1254 ? Circulation Director: ? Procedure Note Donrima, Image - 02/10/2025 [facility] [address] [place] [address] Mammography Report Signed Patient: Elvira Burgess#: [id number] : 1950cct:[id number] Age/Sex: 74 / FADM Date: 02/09/25 Loc: HO.MAMMO Attending Dr: Lobo Mo MD Ordering Physician: Lobo Moesults: 1Negative Date of Service: 02/09/25Follow Up: 1 Year From Orig inal Mammogram Procedure(s): MM tomosynthesis added views R Accession Number(s): [id number] cc: Lobo Mo MD EXAMINATION: MM DIAGNOSTIC DIGITAL BREAST TOMOSYNTHESIS, RIGHT Limited right breast ultrasound. CLINICAL INFORMATION: Call back from screening for right asymmetry. COMPARISON: Mammography: Priors on PACS. TECHNIQUE: Digital breast tomosynthesis is performed in both the craniocaudal and mediolateral oblique views along with computer-aided detection (CAD). Synthesized 2D images are generated from the tomosynthesis. FINDINGS: There are scattered areas of fibroglandular density (ACR BI-RADS breast composition Category b). Previously seen asymmetry in the superior right breast on MLO view does not persist on additional imaging projections and likely represented overlapping breast tissue. There are postsurgical changes. There are no significant masses, abnormal calcifications, or other abnormalities. Targeted color doppler ultrasound demonstrates normal fibroglandular breast tissue scanning from 10-2:00. There is no sonographic abnormality. MM/MM tomosynthesis added views R IMPRESSION: No mammographic evidence of malignancy. ASSESSMENT: BI-RADS BI-RADS 1 - Negative RECOMMENDATION: 1 year F/U Results were provided to the patient at time of visit by the technologist. This patient's information was entered into a reminder system with a target due date for their next mammogram. Electronically signed by: Pam Reyes DO 02/10/2025 02:26 PM EDT Dictated By: Pam Reyes DO Signed By: <Electronically signed by Pam Reyes DO in OV> 02/10/25 1426 DD/ 1243 TD/TT: 02/09/25 1254 Circulation Director: Lobo Name IMG BI PROCEDURES Final Result * Colonoscopy (02/04/2019) Colonoscopy Normal Normal Comment:repeat in 10 years Historical Provider HEALTH MAINTENANCE Final Result from Last 3 Months or Most Recently Relevant to Health Maintenance Insurance MEDICARE [facility] Care Teams Filler Shredder Relationship Specialty Start Date End Date Name, MD Lobo [address] [place] [phone] PCP - General Family Medicine 02/26/16
--- OUTSIDE RECORDS SUMMARY | 2025-03-14 09:08 | XMS_ITS | Encounter Summary ---
Author Organization [employer] Address [address] [facility] 7t [place] [address] Care Team Providers Care City Planning Engineer Name Role Phone Name, Lobo BROWN Primary Care Provider [phone] Reason for Visit * Reason Comments Med Refill Encounter Details Date Type Department Care Team ([facility] st Contact Info) Description 03/11/2025 Refill [facility] [address] [place], [place] [phone] Name, MD Lobo [address] [place] [address] Social History Tobacco Use Types Packs/Day Years [...] documented as of this encounter Care Teams City Planning Engineer Relationship Specialty Start Date End Date Name, MD Lobo [address] [place] [address] PCP - General Family Medicine 02/26/16 documented as of this encounter
--- OUTSIDE RECORDS SUMMARY | 2025-03-14 09:08 | XMS_ITS | Encounter Summary ---
Author Organization [employer] Address [address] [facility] 7t [place] [address] Care Team Providers Care Lollypop Machine Operator Name Role Phone Name, Lobo BROWN Primary Care Provider [phone] Reason for Visit * Reason Comments Follow-up Encounter Details Date Type Department Care Team (Latest Contact Info) Description 03/09/2025 11:15 AM EDT Office Visit [facility] [address] [place] [address] [phone] Name, MD Lobo [address] [place] [phone] Osteoporosis without current pathological fracture, unspecified osteoporosis type (Primary Dx); Primary hyperparathyroidism (CMS/HCC); S/P subtotal parathyroidectomy; Hypothyroidism, unspecified type; Hyperlipidemia, unspecified hyperlipidemia type; On statin therapy Social History Tobacco Use Types Packs/Day Years [...] Mass Index 30.93 03/09/2025 11:20 AM EDT documented in this encounter Progress Notes * Lobo Mo, - 03/09/2025 11:15 AM EDT Images from the original note were not included. Subjective Patient ID: Camila Burgess is a 74 y.o. female who presents for Follow-up. Patient comes for a follow-up visit. She is feeling very well. Since her last appointment she has successful parathyroidectomy done in January at [facility]. Her calcium has normalized. Her blood or blood bank technician has suggested a drug holiday from the Fosamax. I reviewed the chart and it seems that she has been on Fosamax for about 8 years. I agree with the drug holiday. She has upcoming appointment for a repeat bone density test scheduled to be done at [facility] where her blood or blood bank technician works. She is physically active. She has adequate calcium intake. She tells me she discontinued the use of sertraline since she is not depressed anymore. She also stopped using lorazepam altogether. She continues using her thyroid supplementation for hypothyroidism and statin for primary prevention of cardiovascular disease. She agrees to go for blood work to repeat TSH and lipid panel. Review of Systems Constitutional: Negative for chills and fever. HENT: Negative for sore throat. Respiratory: Negative for cough, shortness of breath and wheezing. Cardiovascular: Negative for chest pain, palpitations and leg swelling. Gastrointestinal: Negative for abdominal pain. Visit Vitals BP 127/75 (BP Location: Left arm, Patient Position: Sitting, BP Cuff Size: Adult) Pulse 84 Temp 99.1 ??F (37.3 ??C) (Temporal) Resp 18 Ht 5' 3 (1.6 m) Wt 174 lb 9.6 oz (79.2 kg) SpO2 97% BMI 30.93 kg/m?? Smoking Status Never BSA 1.88 m?? Objective Physical Exam Constitutional: Appearance: Normal appearance. Cardiovascular: Rate and Rhythm: Normal rate and regular rhythm. Heart sounds: No murmur heard. No gallop. Pulmonary: Effort: Pulmonary effort is normal. No respiratory distress. Breath sounds: Normal breath sounds. No wheezing. Musculoskeletal: Right lower leg: No edema. Left lower leg: No edema. Neurological: Mental Status: She is alert. ntains abnormal data Comprehensive metabolic panel Order: [id number] Component Ref Range & Units 13 d ago SODIUM 133 - 146 mmol/L 136 POTASSIUM 3.3 - 5.1 mmol/L 4.2 CHLORIDE 96 - 108 mmol/L 100 CO2 21 - 35 mmol/L 26 BUN 6 - 19 mg/dL 10 CREATININE 0.5 - 1.5 mg/dL 0.6 GLUCOSE 70 - 99 mg/dL 108 High ALBUMIN 3.9 - 4.8 g/dL 4.1 TOTAL PROTEIN 6.5 - 8.0 g/dL 7.5 CALCIUM 8.4 - 10.3 mg/dL 9 ALKALINE PHOSPHATASE 39 - 117 U/L 117 TOTAL BILIRUBIN 0.0 - 1.2 mg/dL 0.6 AST 0 - 37 U/L 20 ALT 0 - 40 U/L 18 GLOBULIN 1 - 4.8 g/dL 3.4 EGFR >59 mL/min/1.73m2 95 Comment: Estimated glomerular filtration rate calculated using the CKD-EPI refit equation. ANION GAP 10 - 20 mmol/L 14 Resulting Agency [facility] athyroid hormone (PTH) Order: [id number] Component Ref Range & Units 13 d ago PARATHYROID HORMONE 15 - 65 pg/mL 54 Resulting Agency [facility] Specimen Collected: 02/24/25 08:36 Performed by: [facility] Last Resulted: 02/24/25 14:32 Received From: [facility] Result Received: 03/03/25 09:47 View Encounter Received Information Assessment/Plan Diagnoses and all orders for this visit: Osteoporosis without current pathological fracture, unspecified osteoporosis type Comments: I agree with drug holiday for the Fosamax. Hypercalcemia and hyperparathyroidism resolved after recent surgery. She will keep appointment for bone density as recommended by her blood or blood bank technician. Continue regular physical activity and current dairy products dietary intake Primary hyperparathyroidism (CMS/[facility]) Comments: S/P subtotal parathyroidectomy Comments: Left inferior parathyroidectomy at [facility] in January 2025 Hypothyroidism, unspecified type Comments: Continue levothyroxine and recheck TSH. Orders: - TSH W/Reflex to FT4; Future Hyperlipidemia, unspecified hyperlipidemia type Comments: Continue statin for primary prevention and recheck fasting lipids. On statin therapy - Lipid Panel, Standard; Future documented in this encounter Plan of Treatment Scheduled Orders Name Type Priority Associated Diagnoses Orde r Schedule TSH W/Reflex to FT4 Lab Routine Hypothyroidism, unspecified type Expected: 03/09/2025 (Approximate), Expires: 03/09/2026 Lipid Panel, Standard Lab Routine On statin therapy Expected: 03/09/2025 (Approximate), Expires: 03/09/2026 documented as of this encounter Visit Diagnoses Diagnosis Osteoporosis without current pathological fracture, unspecified osteoporosis type- Primary Primary hyperparathyroidism ([facility]) Primary hyperparathyroidism S/P subtotal parathyroidectomy Other postprocedural status Hypothyroidism, unspecified type Hyperlipidemia, unspecified hyperlipidemia type On statin therapy documented in this encounter Additional Health Concerns Assessment Noted Time PHQ-9 Depression Total Score: 0 04/15/20 24 9:00 AM EDT documented as of this encounter Care Teams Lollypop Machine Operator Relationship Specialty Start Date End Date Name, MD Lobo [address] [place] [address] PCP - General Family Medicine 02/26/16 documented as of this encounter
--- OUTSIDE RECORDS SUMMARY | 2025-03-14 09:08 | XMS_ITS | Encounter Summary ---
Author Organization [employer] Address [address] [facility] 7t [place] [address] Care Team Providers Care Health Support Specialist Name Role Phone Name, Lobo BROWN Primary Care Provider [phone] Reason for Visit * Reason Onset Date Comments Record Request 11/18/2023 Encounter Details Date Type Department Care Team ([facility] st Contact Info) Description 11/18/2023 Telephone [facility] [address] [place], [place] [phone] Name, MD Lobo [address] [place] [address] Record Request Social History Tobacco Use Types [...] last lab results faxed to Lucía at [facility] as requested. Confirmation received. * Telephone Encounter - Mariama Gloria - 11/18/2023 11:51 AM EST Tc from lucía (MEETA) with [facility] requesting 07/31 OV notes and last lab results to be faxed to [phone]. Any questions, contact lucía at [phone] documented in this encounter Plan of Treatment Not on file documented as of this encounter Visit Diagnoses Not on filedocumented in this encounter Additional Health Concerns Assessment Noted Time PHQ-9 Depression Total Score: 0 01/23/20 23 2:25 PM EDT documented as of this encounter Care Teams Health Support Specialist Relationship Specialty Start Date End Date Name, MD Lobo [address] [place] [address] PCP - General Family Medicine 02/26/16 documented as of this encounter
--- OUTSIDE RECORDS SUMMARY | 2025-03-14 09:08 | XMS_ITS | Continuity of Care Document ---
Author Organization [facility] Thor[facility] Address [address] [place] [address] [address] [place], [address] [place] [address]- Care Team Providers Care Printing Sales Representative Name Role Phone Name Lobo BROWN Primary Care Physician [phone] [place] [facility] [place]): [place] 03/12/25 [facility] Thoracic Surgery [address] [place] [address] Drive [address] [place], [place] [address] Encounter Type: Triage Allergies, Adverse Reactions, Alerts Substance Criticality Severity Reaction Reaction Severity Status Bee Stings anaphylaxis Active Medications albumin level and calcium level on 02/07/25 albumin level and calcium level on 02/07/25, See Instructions, # 1 each, Refills 0, Tot. Refills 0, Maintenance, Please obtain albumin and calcium blood levels from lab draw on week of 02/07/2025, 01/31/25 9:18:00 AM EDT, Supply, 160, cm, 01/31/25 7:07:00 EDT, Height, 77.8, kg, 01/31/25 7:07:00 EDT, Dry Weight Start Date: 01/31/25 Status: Ordered Quantity: 1.0 Unit: each Repeat number: 1 atorvastatin 20 mg oral tablet 90 each, 0 Refill(s), TAKE 1 TABLET BY MOUTH EVERY DAY IN THE MORNING, 0 Refills, 09/02/24 1:02:00 PM EST, Partial fill upon patient request if the prescription is for a schedule II opioid drug. Start Date: 09/02/24 Status: Ordered Repeat number: 1 Biotin By Mouth, Daily, 0 Refills, Maintenance, 09/23/17 2:09:27 PM EST Start Date: 09/23/17 Status: Ordered Repeat number: 1 calcium (as carbonate)-vitamin D 500 mg-400 intl units oral tablet 1 tablet, By Mouth, Daily, 0 Refills, Maintenance, 09/23/17 2:09:14 PM EST Start Date: 09/23/17 Status: Ordered Repeat number: 1 docusate sodium 100 mg oral tablet 1 tablet = 100 mg, By Mouth, Daily, While on oxycodone, # 10 tablet, 0 Refills, Maintenance, :18:00 AM EDT, Tablet, [facility]/pharmacy #[id number], Partial fill upon patient request if the prescription is for a schedule II opioid drug., 160, cm, 01/31/25 7:07:00 EDT, Height, 77.8, kg, 01/31/25 7:07:00 EDT, Dry Weight Start Date: 01/31/25 Stop Date: 02/10/25 Status: Ordered Quantity: 10.0 Unit: tablet Repeat number: 1 EPINEPHrine 0.3 mg injectable solution 0.3 Unknown, Intramuscular, 0 Refill(s), Inject 0.3 mg into the muscle once as needed., 0 Refills, 01/21/23 8:00:00 PM EDT, Partial fill upon patient request if the prescription is for a schedule II opioid drug. Start Date: 01/21/23 Status: Ordered Repeat number: 1 Fish Oil By Mouth, 0 Refills, Maintenance, 09/23/17 2:08:56 PM EST Start Date: 09/23/17 Status: Ordered Repeat number: 1 Fosamax 70 mg oral tablet 3 Refill(s), Take 1 tablet by mouth every week in the morning, at least 30 min before first food, beverage, or medication of day, 0 Refills, 01/21/23 8:00:00 PM EDT, Partial fill upon patient request if the prescription is for a schedule II opioid drug. Start Date: 01/21/23 Status: Ordered Repeat number: 1 Glucosamine & Chondroitin with MSM 0 Refills, Maintenance, 09/23/17 2:09:20 PM EST Start Date: 09/23/17 Status: Ordered Repeat number: 1 ketorolac 0.5% ophthalmic solution 5 mL, 0 Refill(s), INSTILL 1 DROP INTO AFFECTED EYE 3 TIMES A DAY STARTING 2 DAYS PRIOR TO SURGERY CONTINUE DIRECTED, 0 Refills, 09/02/24 1:02:00 PM EST, Partial fill upon patient request if the prescription is for a schedule II opioid drug. Start Date: 09/02/24 Status: Ordered Repeat number: 1 levothyroxine 0.1 mg oral tablet 1 tablet = 100 mcg, By Mouth, Daily, 0 Refills, Maintenance, 09/23/17 2:08:40 PM EST Start Date: 09/23/17 Status: Ordered Repeat number: 1 LORazepam 0.5 mg oral tablet 0.5 Unknown, Oral, 0 Refill(s), Take 0.5 mg by mouth daily as needed., 0 Refills, 01/21/23 8:00:00 PM EDT, Partial fill upon patient request if the prescription is for a schedule II opioid drug. Start Date: 01/21/23 Status: Ordered Repeat number: 1 sertraline 50 mg oral tablet 0.5 tablet = 25 mg, 90 each, 0 Refill(s), TAKE 1 TABLET BY MOUTH EVERY DAY IN THE MORNING, 0 Refills, 09/02/24 1:02:00 PM EST, Partial fill upon patient request if the prescription is for a schedule II opioid drug. Start Date: 09/02/24 Status: Ordered Repeat number: 1 Problem List Condition Confirmation Course Effective Dates Status Health St atus Informant Obese class I Confirmed Active Social History Social History Type Response Smoking Status Never smoker entered on: 09/23/17 Sex Sex Representation Female (finding) Patient Care team information Care Team Personnel Name: Lobo Mo MD Position: [facility] Outreach Member Role: PCP Address: [address] [place] [address] Telecom: Care Team Related Persons Name: LAW WASHINGTON Insurance Providers Guarantor name: FRANCESCO WASHINGTON Health Plan Information #: 1 Payer: MEDICARE PART B OUTPT Member Number: NA Policy Number: NA Group Number: NA Health Plan Information #: [address] [facility] Member Number: NA Policy Number: NA Group Number: NA
--- OUTSIDE RECORDS SUMMARY | 2025-03-14 09:09 | XMS_ITS | Encounter Summary ---
Author Organization [employer] Address [address] [facility] 7t [place] [address] Care Team Providers Care Fire Marshal Refinery Name Role Phone Name, Lobo BROWN Primary Care Provider [phone] Reason for Visit * Reason Onset Date Comments request 01/30/2024 Encounter Details Date Type Department Care Team ([facility] st Contact Info) Description 01/30/2024 Telephone [facility] MEDICINE [address] [place] [address] [phone] Name, MD Lobo [address] [place] [address] request Social History Tobacco Use Types Packs/Day [...] t he electric, gas, oil or water [email or web address] threatened to shut off services in your [...] pt requesting to switch appt with Kayden Aditya Stated he needs to be seen sooner. Her appt is on 02/22 His 04/15 documented in this encounter Plan of Treatment Not on file documented as of this encounter Visit Diagnoses Not on filedocumented in this encounter Additional Health Concerns Assessment Noted Time PHQ-9 Depression Total Score: 0 01/23/20 23 2:25 PM EDT documented as of this encounter Care Teams Fire Marshal Refinery Relationship Specialty Start Date End Date Name, MD Lobo [address] [place] [address] PCP - General Family Medicine 02/26/16 documented as of this encounter
--- OUTSIDE RECORDS SUMMARY | 2025-03-14 09:09 | XMS_ITS | Encounter Summary ---
Author Organization [employer] Address [address] [place] [address] 7 [place] [address] Care Team Providers Care Drug Safety Associate Name Role Phone Name, Lobo BROWN Primary Care Provider [phone] Encounter Details Date Type Department Care Team (Late st Contact Info) Description 04/07/2023 Abstract [facility] MEDICINE [address] [place], [place] [phone] Name, MD Lobo [address] [place] [address] Social History Tobacco Use Types Packs/Day Years [...] documented as of this encounter Care Teams Drug Safety Associate Relationship Specialty Start Date End Date Name, MD Lobo [address] [place], [place] [phone] PCP - General Family Medicine 02/26/16 documented as of this encounter
--- OUTSIDE RECORDS SUMMARY | 2025-03-14 09:09 | XMS_ITS | Patient Health Record ---
Author Organization [facility] jules Fountain Address [address] [facility] [place] [address] Care Team Providers Care Manager Title Name Role Phone Name Lobo BROWN Primary Care Provider Karime Powers Unavailable [phone] Reason For Referral No Information Medications Medication [...] Problem Status W/U Status Risk Notes Problem [id number] Hammer toe of right foot (M20.41) Active confirmed Problem [id number] Hammer toe of left foot (M20.42) Active confirmed Plan Of Treatment No Information Insurance Providers Payer Name Payer Address Payer Phone Subscriber Number Group Number Insured Name Patient Relationship to Insured Coverage Start Date Coverage End Date Medicare National Govt Svcs Inc [address] [place] [address] [id number] Camila Burgess Self - patient is the insured [employer] ([employer]) [address] [place] [address] [phone] [id number] Camila Burgess Self - patient is the insured Medical (General) History Medical History History ICD Code Anemia Anxiety Back,Hip,and Knee pain CAD (Cholesterol) Depression Numbness thyroid Measles Mumps Chicken pox Surgical History Surgery Date(Month/Year) lumpectomy, right breast 11/1971 D&C 1979, 1988
--- OUTSIDE RECORDS SUMMARY | 2025-03-14 09:09 | XMS_ITS | Clinical Summary ---
Author Organization [facility] Address [address] [address] Phone Care Team Providers Care Blower Feeder Dyed Raw Stock Name Role Phone Name, Lobo BROWN Primary Care Provider [phone] Allergies Active Allergy Reactions Criticality Noted Date Comments Bee Venom Protein (Honey Bee) 05/22/2007 Other Reaction(s): Numbness, tingling or swelling of the lips, tongue or mouth Venom-Honey Bee 05/22/2007 Other reaction(s): Numbness, tingling or swelling of the lips, tongue or mouth Medications levothyroxine (SYNTHROID, LEVOTHROID) 88 MCG tablet Take [...] Date Primary hyperparathyroidism 03/08/2024 Assessment & Plan (03/03/2025 9:39 AM EDT): Status post parathyroidectomy. Intact PTH is now in the reference range. Serum calcium levels in the reference range. No further workup for this condition. Assessment & Plan (09/13/2024 8:43 AM EST): [...] to endocrine surgeon Dr. Katherin Saldivar at [facility]. Assessment & Plan (03/08/2024 9:03 AM EDT): Based on elevated intact PTH and serum calcium to correct to normal she has normocalcemic primary hyperparathyroidism. 24-hour urine calcium output, 1, 25 dihydroxy vitamin D, serum phosphorus, GFR were all in the reference range. She only has 1 indication for parathyroidectomy this is osteoporosis. I will request a parathyroid scan to be done at [facility]. Age-related osteoporosis wit hout current pathological fracture 03/08/2024 Assessment & Plan (03/03/2025 9:38 AM EDT): The patient underwent parathyroidectomy which should eventually help improve bone mineral density. She continues calcium, vitamin D supplements and alendronate 70 mg. She has been using alendronate since 2019 I do not know the exact amount of that it was started but we usually use alendronate for 5 years sometimes we can extended a little bit more to 6 years of 7 years. At the 5-year nancy there is a increased risk of atypical femur fracture so she is probably going to need a drug holiday. She is due for repeat DXA scan on 04/01/2026 so potentially she can continue using alendronate for another year and then we can reevaluate then. Assessment & Plan (09/13/2024 8:43 AM EST): [...] will request the study be done at [facility] but the forearm should be measured in [...] Encounters Date Type Department Care Team Description 03/03/2025 9:30 AM EDT Office Visit [facility] [address] [place] [address] Didier Parks DO Primary hyperparathyroidism (Primary Dx); Age-related osteoporosis without current pathological fracture 02/24/2025 8:36 AM EDT - 02/24/2025 11:59 PM EDT Hospital Encounter [facility] [address] [facility] [place] [address] Didier Parks DO Discharge Disposition: Home or Self Care from Last 3 Months Family History Medical [...] with a working camera? Not on file Comments Unknown Sex and Gender Information Value Date Recorded Sex Assigned at Not on file Legal Sex Female 10:18 AM EDT Gender Identity Not on file Sexual Orientation Not on file Last Filed Vital Signs Vital Sign Reading Time Taken Comments Blood Pressure 132/86 03/03/2025 9:21 AM EDT Pulse 81 03/03/2025 9:21 AM EDT Temperature 36.4 ??C (97.5 ??F) 12/05/2023 10:[address] Respiratory Rate - - Oxygen Saturation 98% 09/13/2024 8:31 AM EST Inhaled Oxygen Concentration - - Weight 78.5 kg (173 lb) 03/03/2025 9:21 AM EDT Height 159 cm (5' 2.6 ) 03/03/2025 9:21 AM EDT Body Mass Index 31.04 03/03/2025 9:21 AM EDT Plan of Treatment Upcoming Encounters Date Type Department Care Team (Late st Contact Info) Description 05/04/2026 8:30 AM EDT Office Visit [facility] [address] [place] [address] Didier Parks DO [address] [place] [address] [email or web address] Health Maintenance Due Date Last Done Comments LIPID PANEL 1951 DEPRESSION SCREENING 1963 HEPATITIS C SCREENING 1969 COLOGUARD 1996 COLONOSCOPY 1996 COLORECTAL CANCER SCREENING 1996 FIT TEST 1996 FOBT 1996 SIGMOIDOSCOPY 1996 VIRTUAL COLONOSCOPY 1996 ZOSTER VACCINES (1 of 2) 2001 PNEUMOCOCCAL VACCINES (50+ years) (2 of 2 - PCV) 12/06/2017 12/06/2016 COVID-19 VACCINE ( season) 2024 MAMMOGRAM 11/11/2024 11/11/2022 TSH LEVEL 12/12/2024 12/12/2023 RSV VACCINE (1 - 1-dose 75+ series) 2026 Adult Td,Tdap Booster 07/31/2033 07/31/2023, 013 SMOKING STATUS SCREENING (Once After 26 Yrs) Completed 09/13/2024 OSTEOPOROSIS SCREENING INITIAL (ONE-TIME) Completed 03/03/2025, 04/01/2024, 03/08/2024, Additional history exists HEPATITIS A VACCINES Aged Out No long er eligible based on patient's age to complete this topic HIB VACCINES Aged Out No longer eligi ble based on patient's age to complete this topic MENINGOCOCCAL VACCINES (ACWY) Aged Out No longer eligible based on patient's age to complete this topic MENINGOCOCCAL VACCINES (B) Aged Out N o longer eligible based on patient's age to complete this topic Medical Devices Not on file Procedures Procedure Name Priority Date/Time Associated Diagnosis Comments BD DXA MONITORING Routine 03/03/2025 9:4 4 AM EDT Primary hyperparathyroidism Age-related osteoporosis without current pathological fracture PARATHYROID HORMONE (PTH) Routine 02/24/2025 8:36 AM EDT Primary hyperparathyroidism Age-related osteoporosis without current pathological fracture COMPREHENSIVE METABOLIC PANEL Routine 02/24/2025 8:36 AM EDT Primary hyperparathyroidism Age-related osteoporosis without current pathological fracture TSH WITH REFLEX Routine 12/12/2023 8:39 AM EST Hypercalcemia from Last 3 Months or Most Recently Relevant to Health Maintenance Results * (ABNORMAL) Comprehensive metabolic panel (02/24/2025 8:36 AM EDT) SODIUM 136 133 - 146 mmol/L [facility] POTASSIUM 4.2 3.3 - 5.1 mmol/L [facility] CHLORIDE 100 96 - 108 mmol/L [facility] CO2 26 21 - 35 mmol/L [facility] BUN 10 6 - 19 mg/dL [facility] CREATININE 0.60 0.5 - 1.5 mg/dL [facility] GLUCOSE 108(H) 70 - 99 mg/dL [facility] ALBUMIN 4.1 3.9 - 4.8 g/dL [facility] TOTAL PROTEIN 7.5 6.5 - 8.0 g/dL [facility] CALCIUM 9.0 8.4 - 10.3 mg/dL [facility] ALKALINE PHOSPHATASE 117 39 - 117 U/L [facility] TOTAL BILIRUBIN 0.6 0.0 - 1.2 mg/dL [facility] AST 20 0 - 37 U/L [facility] ALT 18 0 - 40 U/L [facility] GLOBULIN 3.4 1 - 4.8 g/dL [facility] EGFR 95 >59 mL/min/1.7 3m2 [facility] Comment:Estimated glomerular filtration rate calculated using the CKD-EPI refit equation. ANION GAP 14 10 - 20 mmol/L [facility] Blood 02/24/2025 8:36 AM EDT 02/24/2025 8:41 AM EDT Didier Parks DO LAB BLOOD ORDERABLES Final Resul t Performing Organization Address City/[facility] [address]/ZIP Co de Phone Number [address] [address] * Parathyroid hormone (PTH) (02/24/2025 8:36 AM EDT) PARATHYROID HORMONE 54 15 - 65 pg/mL [facility] Blood 02/24/2025 8:36 AM EDT 02/24/2025 8:42 AM EDT Didier Parks DO LAB BLOOD ORDERABLES Final Resul t Performing Organization Address [facility] [address]/ZIP Co de Phone Number [address] [address] * DXA Monitoring (04/01/2024 11:30 AM EDT) Anatomical Region Laterality Modality Bone Density Bone Density us Didier Parks DO IMG BD BONE DENSITY DEXA Final R esult * (ABNORMAL) TSH with reflex (12/12/2023 8:39 AM EST) TSH 4.57(H) 0.27 - 4.20 uIU/mL [facility] Blood 12/12/2023 8:39 AM EST 12/12/2023 8:44 AM EST us Didier Pettyasio DO LAB BLOOD ORDERABLES Final Resul t [facility] [address] [place] [address] from Last 3 Months or Most Recently Relevant to Health Maintenance Insurance MEDICARE PART A & B [facility] MEDICARE SUPPLEMENT MEDICARE PART A & B [facility] [employer] MEDICARE SUPPLEMENT MEDICARE PART A & B [facility] MEDICARE SUPPLEMENT MEDICARE PART A & B [employer] MEDICARE SUPPLEMENT MEDICARE PART A & B [employer] MEDICARE SUPPLEMENT MEDICARE PART A & B [facility] [employer] [place] [phone] Care Teams Blower Feeder Dyed Raw Stock Relationship Specialty Start Date End Date Name, MD Lobo [address] [place] [address] PCP - General Internal Medicine 08/18/23 Additional Source Comments The information contained in this document represents components of the legal health record. It is not the complete legal health record.[facility]
--- OUTSIDE RECORDS SUMMARY | 2025-03-14 09:09 | XMS_ITS | Encounter Summary ---
Author Organization [employer] Address [address] [facility] 7t [place] [address] Care Team Providers Care Collet Making Machine Operator Name Role Phone Name, Lobo BROWN Primary Care Provider [phone] Encounter Details Date Type Department Care Team ([facility] st Contact Info) Description 12/02/2023 Abstract [facility] MEDICINE [address] [place], [place] [phone] Name, MD Lobo [address] [place] [address] Social History Tobacco Use Types Packs/Day Years [...] documented as of this encounter Care Teams Collet Making Machine Operator Relationship Specialty Start Date End Date Name, MD Lobo [address] [place] [address] PCP - General Family Medicine 02/26/16 documented as of this encounter
--- OUTSIDE RECORDS SUMMARY | 2025-03-14 09:09 | XMS_ITS | Encounter Summary ---
Author Organization [employer] Address [address] [facility] 7t [place] [address] Care Team Providers Care Chemistry Technician Name Role Phone Name, Lobo BROWN Primary Care Provider [phone] Reason for Visit * Reason Onset Date Comments Pre-op 06/02/2024 Encounter Details Date Type Department Care Team ([facility] st Contact Info) Description 06/02/2024 Telephone [facility] MEDICINE [address] [place] [address] [phone] Name, MD Lobo [address] [place], [place] [phone] Pre-op Social History Tobacco Use Types Packs/Day [...] Surgeon's name: Dr. Didier Manzo Facility name: [facility] Surgeon's office number: [phone] EXT [facility] Surgeon's office fax number: [phone] Contact name (person you spoke with): Phoebe No office note from surgeon requested: Yes documented in this encounter Plan of Treatment Not on file documented as of this encounter Visit Diagnoses Not on filedocumented in this encounter Additional Health Concerns Assessment Noted Time PHQ-9 Depression Total Score: 0 04/15/20 9:00 AM EDT documented as of this encounter Care Teams Chemistry Technician Relationship Specialty Start Date End Date Name, MD Lobo [address] [place] [address] PCP - General Family Medicine 02/26/16 documented as of this encounter
[2025-03-14 10:54] LABS: Cholesterol 142 mg/dL (<200); HDL Cholesterol 48 mg/dL (>40); LDL Cholesterol Calculated 59 mg/dL (<100); Triglycerides 177 mg/dL (<150)
[2025-03-14 11:05] LABS: TSH reflex Free T4 1.19 uIU/mL (0.32-4.0)
== END 2025-03-14 08:58 | disposition home or self-care (01) ==
LOC: HO.HMGCLDS 08:57
PROVIDERS: PCP Internal Medicine Geriatric Medicine; Visit Provider Internal Medicine Geriatric Medicine
DX: E03.9 Hypothyroidism, unspecified (principal); Z79.899 Other long term (current) drug therapy
CPT/HCPCS: 36415; 80061; 84443